=== PATIENT | male | born 1985 | race Caucasian/White ===

== ENCOUNTER 2016-09-04 13:45 | Emergency (ER) | payer OTHER ==
[~2016-09-04] VITALS: Ht 172.7 cm; Wt 109.5 kg
[2016-09-04 13:53] VITALS: Ht 172.7 cm; Wt 109.5 kg
[2016-09-04 14:53] LABS: ADD SCAN DIFF NO
[2016-09-04 14:57] LABS: ADD UMIC YES; BASOPHIL # 0.1 10^3/ul (0.0-0.1); BASOPHILS % 0.7 % (0.0-2.0); EOSINOPHILS # 0.1 10^3/ul (0.0-0.5); EOSINOPHILS % 1.6 % (0.0-7.0); HEMATOCRIT 43.4 % (42.0-52.0); HEMOGLOBIN 14.4 g/dl (14.0-18.0); LYMPHOCYTES # 1.5 10^3/ul (0.8-2.9); LYMPHOCYTES % 19.1 % (15.0-51.0); MEAN CORPUSCULAR HEMOGLOBIN 29.3 pg (29.0-33.0); MEAN CORPUSCULAR HGB CONC 33.2 g/dl (32.0-37.0); MEAN CORPUSCULAR VOLUME 88.4 fl (82.0-101.0); MEAN PLATELET VOLUME 9.3 fl (7.4-10.4); MONOCYTE # 0.6 10^3/ul (0.3-0.9); MONOCYTES % 7.9 % (0.0-11.0); NEUTROPHIL # 5.4 10^3/ul (1.6-7.5); NEUTROPHILS % 70.6 % (39.0-77.0); PLATELET COUNT 257 10^3/UL (140-415); RED BLOOD COUNT 4.91 10^6/ul (4.70-6.10); RED CELL DISTRIBUTION WIDTH 12.9 % (11.5-14.5); URINE BILIRUBIN (Dip) NEGATIVE (NEGATIVE); URINE BLOOD (Dip) TRACE (NEGATIVE); URINE COLOR LT. YELLOW (YELLOW); URINE GLUCOSE (Dip) >=1000 % (NEGATIVE); URINE KETONES (Dip) 15 (NEGATIVE); URINE LEUKOCYTE ESTERASE (Dip) NEGATIVE (NEGATIVE); URINE NITRITE (Dip) NEGATIVE (NEGATIVE); URINE TOTAL PROTEIN (Dip) NEGATIVE (NEGATIVE); URINE UROBILINOGEN (Dip) 0.2 E.U./dL (0.1-1.0); WHITE BLOOD COUNT 7.6 10^3/ul (4.8-10.8)
[2016-09-04] MEDS ORDERED: SOD CHLORIDE 0.9% 1,000 ML IV ONE (15:00)
--- NOTE | 2016-09-04 15:01 | RADRPT ---
PROCEDURE: XR Chest. CLINICAL INDICATION: chest pain, abdominal pain TECHNIQUE: Single frontal view of the chest was obtained COMPARISON: None FINDINGS: The heart and mediastinum are within normal limits. The lungs are clear. There is no pleural effusion or pneumothorax. RPTAT: AA IMPRESSION: No acute disease. .Arnold Cerrato MD, MD Date Time Electronically viewed and signed by .Arnold Cerrato MD, on 09/04/2016 15:01 .S/
[2016-09-04 15:08] LABS: URINE RBCS 0-2 /HPF (0)
[2016-09-04 15:20] LABS: ALBUMIN 4.9 g/dl (3.3-4.9); ALBUMIN/GLOBULIN RATIO 1.81; BILIRUBIN,INDIRECT 0.7 mg/dl (0-1.1); BILIRUBIN,TOTAL 0.7 mg/dl (0.2-1.3); CREATININE 0.65 mg/dl (0.61-1.24); POTASSIUM 4.5 mmol/L (3.5-5.1); TOTAL PROTEIN 7.6 g/dl (6.1-8.1)
[2016-09-04] MEDS ORDERED: SODI126M NASAL (15:43)
[2016-09-04] MEDS ORDERED: IBUP-1542 PO (15:43)
[2016-09-04] MEDS ORDERED: INSULIN ASPART [NOVOLOG] 3 ML PEN SC ONE ×2 (16:00→16:30)
--- NOTE | 2016-09-04 17:25 | ERD ---
ER Documentation Chief Complaint Date/Time DATE: 09/04/16 TIME: 17:18 Chief Complaint Complains of Sorethroat with cold and flu symptoms HPI 30-year-old male with history of type 1 diabetes presents to the ED complaining of sore throat and cough 1 week. Patient reports headache at times. He has chills, but denies fever. Denies shortness of breath. Patient reports slight epigastric abdominal pain with nausea, but no vomiting or diarrhea. He takes insulin for his diabetes, last blood sugar checked today was in the 300s. ROS All systems reviewed and are negative except as per history of present illness. Medications Home Meds Active Scripts Sodium Chloride (Saline Nasal Mist) 126 Ml Mist, 2 SPRAY NASAL Q2H Y for NASAL CONGESTION, #1 BOTTLE Prov:ALLISON MARTEL. CATERING ATTENDANT 09/04/16 Ibuprofen* (Motrin*) 600 Mg Tab, 600 MG PO Q6H Y for PAIN AND OR ELEVATED TEMP, #30 TAB Prov:ALLISON MARTEL. CATERING ATTENDANT 09/04/16 Allergies Allergies: Coded Allergies: ciprofloxacin (Verified Allergy, Intermediate, SOB, 09/04/16) PMhx/Soc History of Surgery: Yes (appendex) Anesthesia Reaction: No Hx Neurological Disorder: No Hx Respiratory Disorders: No Hx Cardiac Disorders: No Hx Psychiatric Problems: No Hx Miscellaneous Medical Probl: Yes (type 1 diabetes) Hx Alcohol Use: No Hx Substance Use: No Hx Tobacco Use: No Smoking Status: Unknown if ever smoked Physical Exam Vitals Vital Signs Date Time Temp Pulse Resp B/P Pulse Ox O2 Delivery O2 Flow Rate FiO2 09/04/16 13:53 98.3 87 20 127/73 95 Physical Exam General: Well-developed, well-nourished, conscious and coherent, in no distress Skin: Warm, diaphoretic, without rash, good texture and turgor Head: Normocephalic without evidence of trauma Eyes: Sclera and conjunctivae normal; pupils equal, round, and reactive to light; extraocular movements are intact Ears: Canals are patent. Tympanic membranes are clear Nose/Face: Erythematous swollen with clear nasal discharge. Mouth/throat: Mucous membranes are moist. Posterior pharynx clear without erythema or exudates Neck: Supple without meningismus or adenopathy. Carotids are equal. Trachea midline. No bruits or JVD Chest: Normal AP diameter. Good expansion without retractions. Nontender. Lungs are clear to auscultate bilaterally with good tidal volume Heart: Regular rate and rhythm. No murmur, rub, or gallops heard Abdomen: Soft, epigastric tenderness without masses, guarding, or rebound. Bowel sounds are active. No hepatosplenomegaly Back: Without spinal or CVA tenderness Extremities: Full range of motion. Good strength bilaterally. No clubbing, cyanosis, or edema. Peripheral pulses are intact. Sensation intact Neuro: Alert and oriented 4, GCS 15. Cranial nerves grossly intact. Motor and sensory exams nonfocal. Moves all extremities. Speech clear. Gait normal Result Diagram: 09/04/16 1444 09/04/16 1444 Results 24 hrs Laboratory Tests Test 09/04/16 14:44 09/04/16 14:55 09/04/16 16:15 09/04/16 17:03 White Blood Count 7.610^3/ul Red Blood Count 4.9110^6/ul Hemoglobin 14.4g/dl Hematocrit 43.4% Mean Corpuscular Volume 88.4fl Mean Corpuscular Hemoglobin 29.3pg Mean Corpuscular Hemoglobin Concent 33.2g/dl Red Cell Distribution Width 12.9% Platelet Count 77921^3/UL Mean Platelet Volume 9.3fl Neutrophils % 70.6% Lymphocytes % 19.1% Monocytes % 7.9% Eosinophils % 1.6% Basophils % 0.7% Nucleated Red Blood Cells % 0.0/100WBC Neutrophils # 5.410^3/ul Lymphocytes # 1.510^3/ul Monocytes # 0.610^3/ul Eosinophils # 0.110^3/ul Basophils # 0.110^3/ul Nucleated Red Blood Cells # 0.010^3/ul Urine Color LT. YELLOW Urine Clarity CLEAR Urine pH 5.0 Urine Specific [place] 1.010 Urine Ketones 15 Urine Nitrite NEGATIVE Urine Bilirubin NEGATIVE Urine Urobilinogen 0.2 E.U./dL Urine Leukocyte Esterase NEGATIVE Urine Microscopic RBC 0-2/HPF Urine Microscopic WBC NONE SEEN/HPF Urine Epithelial Cells OCCASIONAL Urine Hemoglobin TRACE Urine Glucose >=1000% Urine Total Protein NEGATIVE Sodium Level 135mmol/L Potassium Level 4.5mmol/L Chloride Level 100mmol/L Carbon Dioxide Level 26mmol/L Anion Gap 14 Blood Urea Nitrogen 19mg/dl Creatinine 0.65mg/dl Glucose Level 404mg/dl Calcium Level 10.0mg/dl Total Bilirubin 0.7mg/dl Direct Bilirubin 0.00mg/dl Indirect Bilirubin 0.7mg/dl Aspartate Amino Transf (AST/SGOT) 20IU/L Alanine Aminotransferase (ALT/SGPT) 22IU/L Alkaline Phosphatase 111IU/L Total Protein 7.6g/dl Albumin 4.9g/dl Globulin 2.70g/dl Albumin/Globulin Ratio 1.81 Lipase 28U/L Bedside Glucose 318mg/dL 296mg/dL 298mg/dL Current Medications Medications (Trade) Dose Ordered Sig/Madai Route PRN Reason Start Time Stop Time Status Last Admin Dose Admin Sodium Chloride (NS) 1,000 ml @ 1,000 mls/hr Q1H ONCE IV 09/04/16 15:00 09/04/16 15:59 DC 09/04/16 14:49 Insulin Aspart (Novolog Insulin Pen) 10 unit ONCE ONCE SC 09/04/16 16:00 09/04/16 16:22 DC Insulin Aspart (Novolog Insulin Pen) 5 unit ONCE ONCE SC 09/04/16 16:30 09/04/16 16:31 DC 09/04/16 16:32 Procedures/MDM 30-year-old male presented to ED with sore throat and cough 1 week. Patient is afebrile, in no respiratory distress. Lungs are clear to auscultate. I doubt that patient has pneumonia or bronchitis. Likely patient's symptoms are result of viral upper respiratory infection. Patient has type 1 diabetes, with blood sugar in the 300s. Patient also reports epigastric abdominal pain and nausea, concerning for DKA. CBC, CMP, lipase, and UA are all negative except for glucose of 404. He does not have any anion gap. I doubt that he has DKA. Chest x-ray is negative for acute cardiopulmonary processes. Patient's blood sugar has lowered to 296 after 1 liter of normal saline. NovoLog 5 units subcu given to the patient. Patient is advised to follow-up with his PCP for his diabetes management. Patient appears well, stable for discharge and outpatient management. Medical decision making shared with patient and family. Education provided to patient and family. Patient and family expressed understanding of the plan. Medications on discharge: Ibuprofen, saline nasal spray. Follow-up: Primary care provider in 2-3 days or return to ED if worse. The case was reviewed and discussed with Dr. Berkowitz, who agrees with the plan of care including labs, treatment, and advanced imaging as appropriate. Departure Diagnosis: Primary Impression: Viral syndrome Additional Impression: Hyperglycemia due to type 1 diabetes mellitus Condition: Good Patient Instructions: Your Diabetes Toolkit, Viral Syndrome (Adult) [facility] Usted se amezcua hecho un examen mdico de control que le indica que no est en kelsey condicin que requiera tratamiento urgente en el Departamento de Emergencia. Un estudio ms profundo y el tratamiento de mariscal condicin pueden esperar sin ningn riesgo hasta que usted sea atendida/o en el consultorio de mariscal mdico o kelsey cl ashly. Es responsabilidad suya arreglar kelsey brian para el seguimiento del margot. MANEJO DE CONDICIONES NO URGENTES EN EL FUTURO 1) Si usted tiene un mdico de atencin primaria: Usted debera llamar a mariscal mdico de atencin primaria antes de venir al departamento de emergencia. Despus de las horas de consultorio, mariscal doctor o mariscal asociado/a est disponible por telfono. El mdico o enfermero de farzad en el servicio telefnico puede asesorarle por jake medio para atender el problema, o margot contrario se puede programar kelsey brian. 2) Si usted no tiene un mdico de atencin primaria: Llame al mdico o clnica de referencia que aparece abajo rosa las horas de consultorio para hacer kelsey brian para que le vean. CLINICAS: [facility] [phone] [facility] [phone] [facility] [phone] [facility] [phone] [facility] [phone] [facility] [phone] [address] Additional Instructions: Llame al doctor MAANA y arlin kelsey BRIAN PARA DENTRO DE 2-3 VILLATORO.Dgale a la secretaria que nosotros le instruimos hacer esta brian.Avise o llame si mariscal condicin se empeora antes de la brian. Regresa aqui si peor o no mejor. ALLISON MARTEL. TOREY Sep 04, 2016 17:25
== END 2016-09-04 17:32 | disposition home or self-care (01) ==
LOC: FTE 13:45
DX: B34.9 Viral infection, unspecified (principal); E10.65 Type 1 diabetes mellitus with hyperglycemia; R07.9 Chest pain, unspecified
CPT/HCPCS: 36415; 71010; 80053; 81001; 82962; 83690; 85025; 93005; 96372; J1815; Z7502

== ENCOUNTER 2016-09-06 06:50 | Inpatient (IN) | payer OTHER ==
[~2016-09-06] VITALS: Ht 180.3 cm; Wt 106.5 kg
[~2016-09-06 06:50] MED LIST: IBUP-1542 PO; SODI126M NASAL
[2016-09-06] MEDS ORDERED: ONDANSETRON 4 MG INJ IV STA (07:00)
[2016-09-06] MEDS ORDERED: LACTATED RINGER'S 1,000 ML IV STA (07:00)
[2016-09-06] MEDS ORDERED: FAMOTIDINE 20 MG INJ IV ONE (07:00)
--- NOTE | 2016-09-06 07:05 | ERA ---
ER Documentation Chief Complaint Date/Time DATE: 09/06/16 TIME: 07:03 Chief Complaint HPI 30-year-old male type I diabetic who presents the emergency room with chest pain , nausea and vomiting. The patient describes multiple symptoms. He was seen here 2 days ago for flulike symptoms with hyperglycemia. The patient still has persistent hyperglycemia despite reported compliance with medication regimen. The patient describes substernal chest discomfort that is dull and constant that started yesterday evening is not associated with mild diaphoresis and nausea. He describes mild epigastric abdominal discomfort, no mid back pain, no sudden onset of symptoms. He describes generalized malaise and body aches over this timeframe. No diarrhea or constipation. ROS All systems reviewed and are negative except as per history of present illness. Medications Home Meds Active Scripts Sodium Chloride (Saline Nasal Mist) 126 Ml Mist, 2 SPRAY NASAL Q2H Y for NASAL CONGESTION, #1 BOTTLE Prov:ALLISON MARTEL. EXPLOSIVE ORDNANCE DISPOSAL SPECIALIST 09/04/16 Ibuprofen* (Motrin*) 600 Mg Tab, 600 MG PO Q6H Y for PAIN AND OR ELEVATED TEMP, #30 TAB Prov:ALLISON MARTEL. EXPLOSIVE ORDNANCE DISPOSAL SPECIALIST 09/04/16 Allergies Allergies: Coded Allergies: ciprofloxacin (Verified Allergy, Intermediate, SOB, 09/04/16) PMhx/Soc History of Surgery: Yes (appendex) Anesthesia Reaction: No Hx Neurological Disorder: No Hx Respiratory Disorders: No Hx Cardiac Disorders: No Hx Psychiatric Problems: No Hx Miscellaneous Medical Probl: Yes (type 1 diabetes) Hx Alcohol Use: No Hx Substance Use: No Hx Tobacco Use: No FmHx Family History: diabetes Physical Exam Vitals Vital Signs Date Time Temp Pulse Resp B/P Pulse Ox O2 Delivery O2 Flow Rate FiO2 09/06/16 08:21 104 18 143/78 96 09/06/16 07:00 98.2 110 18 109/83 96 Physical Exam General: Slightly diaphoretic and spitting into a bag Head: Normocephalic, atraumatic. Eyes: Pupils equally reactive, EOM intact ENT: Dry mucous membranes Neck: Supple, no lymphadenopathy Respiratory: Lungs clear bilaterally, no distress Cardiovascular: RRR, no murmurs, rubs, or gallops Abdominal: Soft, non-tender, non-distended, no peritoneal signs : Deferred MSK: No edema, no unilateral swelling, 5/5 strength, no pulse deficits Neurologic: Alert and oriented, moving all extremities, normal speech, no focal weakness, no cerebellar signs Skin: No rash Psych: Normal mood Result Diagram: 09/06/16 0730 09/06/16 0730 Results 24 hrs Laboratory Tests Test 09/06/16 07:00 09/06/16 07:30 Blood Gas Specimen Source Blood venous Arterial Blood Date Drawn 09/06/2016 7:30:03 AM Arterial Blood Gas Puncture Site VENOUS LINE Jhon Test N/A Venous Blood pH 7.236 Venous Blood pCO2 (Temp Corrected) 31.9mmHG Venous Blood pO2 (Temp Corrected) 68.7mmHG Venous Blood HCO3 13.2mmol/L Venous Blood Oxygen Saturation 91.9mmHG Venous Blood Base Excess -12.9mmol/L Venous Blood Total Hemoglobin 15.7g/dl Venous Blood Oxyhemoglobin 90.9% Venous Blood Methemoglobin 0.3% Carboxyhemoglobin 0.8% Blood Gas Temperature 37.0C Blood Gas Modality ROOM AIR FiO2 21.0% Blood Gas Critical Value Read Back PARVEEN PIEDRA Blood Gas Notified Whom Blood Gas Notified Time 09/06/2016 7:46:21 AM White Blood Count 9.210^3/ul Red Blood Count 4.9310^6/ul Hemoglobin 14.9g/dl Hematocrit 43.5% Mean Corpuscular Volume 88.2fl Mean Corpuscular Hemoglobin 30.2pg Mean Corpuscular Hemoglobin Concent 34.3g/dl Red Cell Distribution Width 12.4% Platelet Count 01590^3/UL Mean Platelet Volume 10.1fl Neutrophils % 73.8% Lymphocytes % 17.4% Monocytes % 6.5% Eosinophils % 0.8% Basophils % 1.1% Nucleated Red Blood Cells % 0.0/100WBC Neutrophils # 6.810^3/ul Lymphocytes # 1.610^3/ul Monocytes # 0.610^3/ul Eosinophils # 0.110^3/ul Basophils # 0.110^3/ul Nucleated Red Blood Cells # 0.010^3/ul Sodium Level 136mmol/L Potassium Level 5.3mmol/L Chloride Level 101mmol/L Carbon Dioxide Level 12mmol/L Anion Gap 28 Blood Urea Nitrogen 23mg/dl Creatinine 0.81mg/dl Glucose Level 357mg/dl Lactic Acid Level 1.6mmol/L Calcium Level 10.6mg/dl Phosphorus Level 4.8mg/dl Magnesium Level 2.0mg/dl Troponin I < 0.012ng/ml Current Medications Medications (Trade) Dose Ordered Sig/Madai Route PRN Reason Start Time Stop Time Status Last Admin Dose Admin Lactated Ringer's (Lr) 1,000 ml @ 1,000 mls/hr Q1H STAT IV 09/06/16 07:00 09/06/16 07:59 DC 09/06/16 07:46 Ondansetron HCl (Zofran Inj) 4 mg ONCE STAT IV 09/06/16 07:00 09/06/16 07:03 DC 09/06/16 07:46 Famotidine 20 mg 20 mg ONCE ONCE IV 09/06/16 07:00 09/06/16 07:03 DC 09/06/16 07:47 Sodium Chloride 2,000 ml @ 1,000 mls/hr Q2H STAT IV 09/06/16 08:57 09/06/16 10:56 09/06/16 09:03 Insulin Human Regular/Sodium Chloride (Novolin-R/NS) 100 ml @ 0 mls/hr TITRATE STAT IV 09/06/16 08:57 09/06/16 09:00 DC Procedures/MDM EKG, MONITORS, & DIAGNOSTIC IMAGING: EKG: I reviewed and interpreted a 12-lead EKG. Rhythm: Normal sinus rhythm Ectopy: None Intervals: No abnormalities ST segments: No elevations or depressions T waves: No contiguous inversions Chest x-ray: I reviewed and interpreted a 1 view of the chest Mediastinum: No enlargement Cardiac silhouette: No cardiomegaly Airspace: Clear lung gibbs bilaterally without evidence of pneumothorax Bones: No evidence of fracture EMS rhythm strip: Rhythm strip: Rate/Rhythm: Normal Sinus Rhythm Impression: No evidence of ischemia or arrhythmia LAB INTERPRETATION: Negative troponin, hyperglycemia with evidence of acidosis on venous blood gas as well as anion gap on metabolic profile MEDICAL DECISION MAKING: The patient presents with nonspecific symptoms that include nausea vomiting diaphoresis myalgias and chest discomfort. I do not believe the patient's chest pain is consistent with acute coronary syndrome given his age and limited risk profile. The patient has no signs or symptoms that are pleuritic and no evidence that this is consistent with pulmonary embolism. Low concern for dissection. The patient's symptoms are likely more consistent with viral syndrome with concomitant diabetic ketoacidosis. Fluid resuscitation, venous blood gas are initiated. Consider possible GI process such as gastritis. IV fluids and Pepcid provided. ER COURSE: Laboratory testing confirms suspicion of diabetic ketoacidosis. The patient was initiated with lactated Ringer's, 2 L of saline. Initial insulin drip was ordered. The patient will likely require insulin protocol with maintenance fluids after boluses. The patient will require intensive care unit level of care. Unclear trigger at this point, likely viral process. Potassium slightly high but no lowering agents given given likelihood of global hypokalemia. Magnesium and phosphorus appear to be within normal limits. Continue to monitor electrolytes. I kept the patient and/or family informed of laboratory and diagnostic imaging results throughout the emergency room course. DISPOSITION PLAN: Intensive care unit for management of diabetic ketoacidosis CONSULTATION: Accepting care team and consultations: I discussed the current laboratory data, diagnostic imaging and emergency care provided. Admitting team: Dr. Etienne Admitting team indication: Insurance directed Critical Care Note: Total time: 35 minutes Indication/Organ System Threat: Diabetic ketoacidosis I spent the above amount of critical care time with the patient, not including billable procedures. This included chart review, consultations, repeat bedside evaluations, and titration of appropriate medications to prevent cardiopulmonary or respiratory collapse. Departure Diagnosis: Primary Impression: Atypical chest pain Additional Impressions: Diabetic ketoacidosis Qualified Code: E10.10 - Diabetic ketoacidosis without coma associated with type 1 diabetes mellitus Viral syndrome Condition: SANDEEP Buchanan MD Sep 06, 2016 07:05
[2016-09-06 07:49] LABS: MODE ROOM AIR; MetHgb Venous 0.3 %; Sample Type Blood venous; Venous COHb 0.8 %; Venous Fraction OxyHgb 90.9 %; Venous Total Hemglobin 15.7 g/dl
[2016-09-06 07:56] LABS: ADD SCAN DIFF NO
[2016-09-06 08:11] LABS: BASOPHIL # 0.1 10^3/ul (0.0-0.1); BASOPHILS % 1.1 % (0.0-2.0); EOSINOPHILS # 0.1 10^3/ul (0.0-0.5); EOSINOPHILS % 0.8 % (0.0-7.0); HEMATOCRIT 43.5 % (42.0-52.0); HEMOGLOBIN 14.9 g/dl (14.0-18.0); LYMPHOCYTES # 1.6 10^3/ul (0.8-2.9); LYMPHOCYTES % 17.4 % (15.0-51.0); MEAN CORPUSCULAR HEMOGLOBIN 30.2 pg (29.0-33.0); MEAN CORPUSCULAR HGB CONC 34.3 g/dl (32.0-37.0); MEAN CORPUSCULAR VOLUME 88.2 fl (82.0-101.0); MEAN PLATELET VOLUME 10.1 fl (7.4-10.4); MONOCYTE # 0.6 10^3/ul (0.3-0.9); MONOCYTES % 6.5 % (0.0-11.0); NEUTROPHIL # 6.8 10^3/ul (1.6-7.5); NEUTROPHILS % 73.8 % (39.0-77.0); PLATELET COUNT 303 10^3/UL (140-415); RED BLOOD COUNT 4.93 10^6/ul (4.70-6.10); RED CELL DISTRIBUTION WIDTH 12.4 % (11.5-14.5); WHITE BLOOD COUNT 9.2 10^3/ul (4.8-10.8)
--- NOTE | 2016-09-06 08:12 | RADRPT ---
PROCEDURE: Chest Radiograph. CLINICAL INDICATION: Chest pain TECHNIQUE: Single frontal chest radiograph. COMPARISON: Chest radiograph 09/04/2016 FINDINGS: The cardiomediastinal silhouette is within normal limits. No infiltrate or effusion is seen. Th e bones are intact. IMPRESSION: 1. Unremarkable chest radiograph. RPTAT: KK .Gilmer Lai MD, MD Date Time Electronically viewed and signed by .Gilmer Lai MD, on 09/06/2016 08:12 .B/
[2016-09-06 08:33] LABS: ANION GAP 28 (8-16); BLOOD UREA NITROGEN 23 mg/dl (7-20); CALCIUM 10.6 mg/dl (8.4-10.2); CARBON DIOXIDE 12 mmol/L (21-31); CHLORIDE 101 mmol/L (97-110); CREATININE 0.81 mg/dl (0.61-1.24); GLUCOSE 357 mg/dl (70-220); PHOSPHORUS 4.8 mg/dl (2.5-4.9); SODIUM 136 mmol/L (135-144)
[2016-09-06 08:46] LABS: TROPONIN-I < 0.012 ng/ml (0.00-0.12)
[2016-09-06 08:49] LABS: POTASSIUM 5.3 mmol/L (3.5-5.1)
[2016-09-06] MEDS ORDERED: SOD CHLORIDE 0.9% 2,000 ML IV STA (08:57)
[2016-09-06] MEDS ORDERED: INSULIN HUMAN REGULAR 100 UNIT in SOD CHLORIDE 0.9% 99 ML IV STA ×2 (08:57→23:21)
[2016-09-06] MEDS ORDERED: SOD CHLORIDE 0.9% 1,000 ML IV SCH (10:15)
[2016-09-06] MEDS ORDERED: DEXTROSE 50% 50 ML SYRINGE IV PRN ×2 (10:30)
[2016-09-06] MEDS ORDERED: HYPOGLYCEMIA TREATMENT XX PRN (10:30)
[2016-09-06] MEDS: ACCU-CHEK XX SCH ×13 (11:11→22:33)
[2016-09-06] MEDS: POTASSIUM CHLORIDE 40 MEQ in SOD CHLORIDE 0.45% 1,000 ML IV SCH ×4 (12:12→23:15)
[2016-09-06] MEDS ORDERED: morphine 2 MG INJ IV PRN (12:30)
[2016-09-06] MEDS ORDERED: hydrALAzine 20 MG INJ IV PRN (12:30)
[2016-09-06] MEDS ORDERED: ONDANSETRON 4 MG INJ IV PRN (12:30)
[2016-09-06] MEDS ORDERED: NACL 0.9% 3 ML SYG IV SCH (12:30)
[2016-09-06 12:36] LABS: CALCIUM 9.5 mg/dl (8.4-10.2); CREATININE 0.85 mg/dl (0.61-1.24); POTASSIUM 5.2 mmol/L (3.5-5.1)
[2016-09-06 12:37] LABS: ADD UMIC NO; UR BILIRUBIN (Dip) NEGATIVE (NEGATIVE); UR BLOOD (Dip) NEGATIVE (NEGATIVE); UR CLARITY CLEAR (CLEAR); UR COLOR LT. YELLOW (YELLOW); UR KETONES (Dip) 3+ (NEGATIVE); UR LEUKOCYTE ESTERASE (Dip) NEGATIVE (NEGATIVE); UR NITRITE (Dip) NEGATIVE (NEGATIVE); UR TOTAL PROTEIN (Dip) NEGATIVE (NEGATIVE); UR UROBILINOGEN (Dip) 0.2 E.U./dL (0.1-1.0)
[2016-09-06 13:06] LABS: BARBITURATES NEGATIVE (NEGATIVE); BENZODIAZEPINES NEGATIVE (NEGATIVE); CANNABINOIDS NEGATIVE (NEGATIVE); COCAINE NEGATIVE (NEGATIVE); OPIATES NEGATIVE (NEGATIVE)
[2016-09-06] MEDS: FAMOTIDINE 20 MG INJ IV SCH ×2 (13:11→20:51)
[2016-09-06] MEDS: D5W-0.45 NACL + KCL 40 MEQ 1,000 ML IV SCH ×3 (13:17→22:04)
[2016-09-06 13:57] LABS: CHOL/HDL RATIO 5.5 RATIO
--- NOTE | 2016-09-06 15:37 | HP ---
DATE OF ADMISSION: 09/06/2016 REASON FOR ADMISSION: Epigastric abdominal pain with nausea and vomiting. Hyperglycemia. HISTORY OF PRESENT ILLNESS: This is a 30-year-old male with past medical history of type 1 diabetes mellitus on insulin, who came to the emergency room with chief complaint of epigastric abdominal pain with multiple episodes of nonbilious, nonbloody vomiting as well as associated nausea. The patient was also complaining of generalized shakiness. The patient denied any fevers. The patient was seen in the emergency room on 09/05/2016 with similar complaints and the patient was discharged home with a diagnosis of viral syndrome. Nevertheless, the patient came back to the emergency room on 2016. The patient was also complaining of some dyspnea early in the morning. The patient denied any diarrhea, dysuria, or hematuria. In the emergency room, the patient was noticed to have a random blood glucose of 357. The patient was also noticed to have anion gap acidosis. The patient was also noticed to hyperkalemia. The patient's chest x-ray was negative for any acute intrathoracic findings. The patient's 12-lead EKG showed sinus rhythm. The patient had a venous blood gas then that showed a pH of 7.236 with bicarbonate of 13.2, and base excess of -0.9. The patient was started on an insulin drip for underlying diabetic ketoacidosis. PAST MEDICAL HISTORY: Type 1 diabetes mellitus. PAST SURGICAL HISTORY: Appendectomy. HOME MEDICATIONS: Insulin. ALLERGIES: CIPRO. SOCIAL HISTORY: The patient lives at home. Denies any use of tobacco, alcohol or illicit drugs. Currently on disability. REVIEW OF SYSTEMS: A 12-point review of systems was made and review of systems are negative other than what is mentioned in the history of present illness. PHYSICAL EXAMINATION: VITAL SIGNS: Temperature 98.2, pulse of 100, respiratory rate 18, blood pressure 141/86, oxygen saturation 96% on room air. GENERAL: This is an obese male lying in bed in no apparent distress. HEENT: Head: Normocephalic and atraumatic. Eyes: Anicteric sclerae. Conjunctivae clear. ENT: Nasal septum is midline. Oral mucosa is dry. NECK: Supple. JVD noticed. RESPIRATORY: Bilaterally clear to auscultation. No adventitious breath sounds. No use of accessory muscles of respiration. CARDIAC: Regular rate and rhythm. S1, S2 heard. ABDOMEN: Soft, nontender and nondistended. Bowel sounds are positive in all 4 quadrants. GENITOURINARY: Deferred. EXTREMITIES: No cyanosis, no clubbing, no edema. Peripheral pulses are palpable. NEUROLOGIC: The patient is awake, alert and oriented. Cranial nerves are grossly intact. LABORATORY AND DIAGNOSTIC DATA: WBC 9.2, hemoglobin 14.9, hematocrit 43.5, platelet count 303. Sodium 136, potassium 5.3, chloride 101, carbon dioxide 12 , anion gap 28, BUN 10, creatinine 0.82, glucose 357, calcium 10.6. Phosphorus 4.8, magnesium 2.0. Troponin less than 0.012. Venous blood gas that was done on room air pH of 7.236, pCO2 of 31.9, pO2 of 68.7, bicarbonate 13.2, base excess was -0.9. Chest x-ray: No acute cardiopulmonary findings. 12-lead EKG: Normal sinus rhythm. IMPRESSION: This is a 30-year-old male with past medical history of type 1 diabetes mellitus, who came to the emergency room with multiple complaints and was found to have evidence of diabetic ketoacidosis, who will be admitted here for further treatment and evaluation. ASSESSMENT AND PLAN: 1. Diabetic ketoacidosis. The patient will be continued on IV regular insulin. Serial basic metabolic panels will be ordered to evaluate improving anion gap. The patient will be kept n.p.o. The patient will be adequately hydrated using IV fluids. 2. Anion gap acidosis. Secondary to #1. Continue management as per #1. 3. Hyperkalemia. The patient will be monitored on telemetry. Hyperkalemia could be most probably secondary to electrolyte imbalances from underlying hyperglycemia. 4. Obesity. BMI of 35.4 kg/meter squared. A fasting lipid panel will be obtained on this patient. A low cholesterol diet will be advised. Plan. The patient will be admitted to inpatient intensive care unit. The patient will be started on deep venous thrombosis prophylaxis and gastrointestinal prophylaxis. The patient will remain a FULL CODE. Activities will be bed rest. The rest of the patient's management will be based on the clinical course and the results of diagnostic studies. Based on the patient's clinical presentation, he most probably requires at least 1 midnight's stay for further management and evaluation of his clinical presentation. The case and management of this patient was fully discussed with Dr. Ramesh. VICENTE RAMESH MD, AM/ELSY Conf#: [id number] DID#: [id number]
[2016-09-06] MEDS: INSULIN HUMAN REGULAR 100 UNIT in SOD CHLORIDE 0.9% 99 ML IV SCH ×4 (19:45→23:56)
[2016-09-06 21:54] LABS: ADD UMIC NO; UR BILIRUBIN (Dip) NEGATIVE (NEGATIVE); UR BLOOD (Dip) NEGATIVE (NEGATIVE); UR CLARITY CLEAR (CLEAR); UR COLOR LT. YELLOW (YELLOW); UR KETONES (Dip) 3+ (NEGATIVE); UR LEUKOCYTE ESTERASE (Dip) NEGATIVE (NEGATIVE); UR NITRITE (Dip) NEGATIVE (NEGATIVE); UR TOTAL PROTEIN (Dip) NEGATIVE (NEGATIVE); UR UROBILINOGEN (Dip) 0.2 E.U./dL (0.1-1.0)
[2016-09-06 22:40] LABS: CALCIUM 9.4 mg/dl (8.4-10.2); CREATININE 0.71 mg/dl (0.61-1.24); POTASSIUM 3.9 mmol/L (3.5-5.1)
[2016-09-06 23:13] VITALS: TEMP 98.3
[2016-09-07] VITALS (18 sets, daily range): BP systolic 101–133; BP diastolic 60–91; PULSE 76–92; RESP 10–26; Ht 180.3 cm; Wt 106.5 kg
[2016-09-07] MEDS: INSULIN HUMAN REGULAR 100 UNIT in SOD CHLORIDE 0.9% 99 ML IV SCH (00:43)
[2016-09-07] MEDS: ACCU-CHEK XX SCH ×16 (01:30→14:30)
[2016-09-07] MEDS: D5W-0.45 NACL + KCL 40 MEQ 1,000 ML IV SCH ×4 (02:45→10:39)
[2016-09-07] MEDS: POTASSIUM CHLORIDE 40 MEQ in SOD CHLORIDE 0.45% 1,000 ML IV SCH (02:45)
[2016-09-07 05:51] LABS: ADD SCAN DIFF NO
[2016-09-07 06:00] LABS: BASOPHILS % 0.5 % (0.0-2.0); EOSINOPHILS # 0.1 10^3/ul (0.0-0.5); EOSINOPHILS % 0.8 % (0.0-7.0); HEMATOCRIT 37.7 % (42.0-52.0); LYMPHOCYTES # 1.5 10^3/ul (0.8-2.9); LYMPHOCYTES % 22.8 % (15.0-51.0); MEAN CORPUSCULAR HEMOGLOBIN 29.8 pg (29.0-33.0); MEAN CORPUSCULAR HGB CONC 34.5 g/dl (32.0-37.0); MEAN CORPUSCULAR VOLUME 86.5 fl (82.0-101.0); MEAN PLATELET VOLUME 8.8 fl (7.4-10.4); MONOCYTE # 0.8 10^3/ul (0.3-0.9); MONOCYTES % 11.9 % (0.0-11.0); NEUTROPHIL # 4.2 10^3/ul (1.6-7.5); NEUTROPHILS % 63.5 % (39.0-77.0); PLATELET COUNT 298 10^3/UL (140-415); RED BLOOD COUNT 4.36 10^6/ul (4.70-6.10); RED CELL DISTRIBUTION WIDTH 12.8 % (11.5-14.5); WHITE BLOOD COUNT 6.6 10^3/ul (4.8-10.8)
[2016-09-07] MEDS ORDERED: INSULIN HUMAN REGULAR 100 UNIT in SOD CHLORIDE 0.9% 99 ML IV SCH (06:00)
[2016-09-07 06:25] LABS: ALBUMIN 4.1 g/dl (3.3-4.9); ALBUMIN/GLOBULIN RATIO 1.78; BILIRUBIN,INDIRECT 0.7 mg/dl (0-1.1); BILIRUBIN,TOTAL 0.7 mg/dl (0.2-1.3); CALCIUM 9.2 mg/dl (8.4-10.2); CREATININE 0.74 mg/dl (0.61-1.24); POTASSIUM 4.4 mmol/L (3.5-5.1); TOTAL PROTEIN 6.4 g/dl (6.1-8.1)
--- NOTE | 2016-09-07 08:19 | CONS ---
Date/Time of Note Date/Time of Note DATE: 09/07/16 TIME: 08:15 Assessment/Plan Assessment/Plan Problems: (1) Diabetes mellitus type 1 Status: Chronic Comment: His DKA has been adequately managed by the primary care team. Curiously the history of the frequent episodes of DKA requiring hospitalization is rather concerning given that there is a certain mortality rate to episodes of DKA. I have her chemical educator meet with them to make sure that his technique for administering his own insulin is appropriate. We will make sure he has adequate supplies of insulin. Therapeutically we will get him started on his basal bolus regimen directly. Please note we have no evidence that there is a chronic infection going on with this gentleman. Qualifiers: Qualified Code: E10.9 - Type 1 diabetes mellitus without complication (2) History of torn meniscus of left knee Status: Chronic Comment: This is a work comp issue and is being managed elsewhere. Course will need to get his diabetes under control for him to get this fixed (3) Diabetic ketoacidosis Status: Acute Comment: Resolved with treatment Qualifiers: Qualified Code: E10.10 - Diabetic ketoacidosis without coma associated with type 1 diabetes mellitus (4) Obesity (BMI 30.0-34.9) Status: Chronic Comment: Calorie restriction diet Consultation Date/Type/Reason Admit Date/Time Sep 06, 2016 at 10:15 Date of Consultation: Sep 07, 2016 Type of Consultation: Endocrinology Reason for Consultation Diabetes mellitus type 1 of 15 years duration and DKA with frequent episodes of DKA Referring Provider: YAQUELIN RAPP Hx of Present Illness 30-year-old gentleman on disability with diabetes mellitus type 1 since age of 15. He reports that he is admitted to the hospital at least 3 times a month with DKA. He says this is been going on for a number of years. He is unaware of any possible inciting causation for this. He states he does not miss his insulin has adequate access to it. He states that sometimes his insulin just does not work. He is come into the hospital in DKA. He denies any fevers chills or sweats he denies any known dental problems or skin abscesses. Constitutional: no complaints Eyes: no complaints ENT: no complaints Respiratory: no complaints Cardiovascular: no complaints Gastrointestinal: no complaints Genitourinary: no complaints Musculoskeletal: other (Left knee pain from prior injury that is work-related and is placed him on disability) Skin: no complaints Neurologic: no complaints Endocrine: polydypsia Past Medical History Diabetes mellitus type 1; left knee meniscal injuries on disability. Past Surgical History Past Surgical Hx: no surgical history Family History Significant Family History: no pertinent family hx Social History Alcohol Use: none Smoking Status: Never smoker Drug Use: none Other Social History He states he is on full disability. He is recently moved to near this facility. He is previously been largely managed at all of view; [facility]; [facility]; and [place] Exam/Review of Systems Vital Signs Vitals Vital Signs Date Time Temp Pulse Resp B/P Pulse Ox O2 Delivery O2 Flow Rate FiO2 09/07/16 08:00 98.8 78 19 113/70 98 Room Air Intake and Output 09/06/16 09/06/16 09/07/16 15:00 23:00 07:00 Intake Total 2000 ml 2223.7 ml Output Total 1800 ml 1100 ml 0 ml Balance -1800 ml 900 ml 2223.7 ml Exam Constitutional: alert, oriented Neck: non-tender, supple Respiratory: clear to auscultation, normal air movement Cardiovascular: nl pulses, regular rate and rhythm Gastrointestinal: nl liver, spleen, non-tender, soft Results Result Diagram: 09/07/16 0515 09/07/16 0527 Results 24 hrs Laboratory Tests Test 09/06/16 09:29 09/06/16 09:33 09/06/16 09:36 09/06/16 10:47 Lactic Acid Level 1.8 Bedside Glucose 143 341 H Hemoglobin A1c 10.5 H Test 09/06/16 10:54 09/06/16 11:30 09/06/16 12:00 09/06/16 12:14 Bedside Glucose 365 H 318 H Urine Color LT. YELLOW Urine Clarity CLEAR Urine pH 5.5 Urine Specific Levasy 1.025 Urine Ketones 3+ H Urine Nitrite NEGATIVE Urine Bilirubin NEGATIVE Urine Urobilinogen 0.2 E.U./dL Urine Leukocyte Esterase NEGATIVE Urine Hemoglobin NEGATIVE Urine Glucose 0.5% H Urine Total Protein NEGATIVE Urine Opiates Screen NEGATIVE Urine Barbiturates NEGATIVE Urine Amphetamines Screen NEGATIVE Urine Benzodiazepines Screen NEGATIVE Urine Cocaine Screen NEGATIVE Urine Cannabinoids NEGATIVE Sodium Level 139 Potassium Level 5.2 H Chloride Level 107 Carbon Dioxide Level 10 L Anion Gap 27 H Blood Urea Nitrogen 23 H Creatinine 0.85 Glucose Level 309 H Lactic Acid Level 2.0 Calcium Level 9.5 Phosphorus Level 4.5 Test 09/06/16 12:55 09/06/16 13:11 09/06/16 14:17 09/06/16 15:19 Triglycerides Level 541 H Cholesterol Level 309 H LDL Cholesterol, Calculated 145 HDL Cholesterol 56 Cholesterol/HDL Ratio 5.5 Vitamin D 1,25-Dihydroxy 28.9 L Thyroid Stimulating Hormone (TSH) 0.345 L Free Thyroxine 0.80 Bedside Glucose 211 179 177 Test 09/06/16 15:22 09/06/16 16:43 09/06/16 17:31 09/06/16 18:33 Urine Color LT. YELLOW Urine Clarity CLEAR Urine pH 5.5 Urine Specific Levasy >=1.030 H Urine Ketones 3+ H Urine Nitrite NEGATIVE Urine Bilirubin NEGATIVE Urine Urobilinogen 0.2 E.U./dL Urine Leukocyte Esterase NEGATIVE Urine Hemoglobin NEGATIVE Urine Glucose 0.5% H Urine Total Protein NEGATIVE Bedside Glucose 160 163 120 Test 09/06/16 19:34 09/06/16 20:30 09/06/16 21:30 09/06/16 21:56 Bedside Glucose 109 119 88 Sodium Level 139 Potassium Level 3.9 Chloride Level 112 H Carbon Dioxide Level 20 #L Anion Gap 11 # Blood Urea Nitrogen 18 Creatinine 0.71 Glucose Level 80 # Calcium Level 9.4 Test 09/06/16 22:34 09/06/16 23:07 09/06/16 23:17 09/07/16 00:27 Bedside Glucose 68 L 112 114 150 Test 09/07/16 01:35 09/07/16 02:10 09/07/16 02:56 09/07/16 03:54 Bedside Glucose 143 121 145 165 Test 09/07/16 04:58 09/07/16 05:15 09/07/16 05:27 09/07/16 06:05 Bedside Glucose 166 166 White Blood Count 6.6 # Red Blood Count 4.36 L Hemoglobin 13.0 L Hematocrit 37.7 L Mean Corpuscular Volume 86.5 Mean Corpuscular Hemoglobin 29.8 Mean Corpuscular Hemoglobin Concent 34.5 Red Cell Distribution Width 12.8 Platelet Count 298 Mean Platelet Volume 8.8 Neutrophils % 63.5 Lymphocytes % 22.8 Monocytes % 11.9 H Eosinophils % 0.8 Basophils % 0.5 Nucleated Red Blood Cells % 0.0 Neutrophils # 4.2 Lymphocytes # 1.5 Monocytes # 0.8 Eosinophils # 0.1 Basophils # 0.0 Nucleated Red Blood Cells # 0.0 Phosphorus Level 2.5 # Sodium Level 138 Potassium Level 4.4 Chloride Level 111 H Carbon Dioxide Level 19 L Anion Gap 12 Blood Urea Nitrogen 17 Creatinine 0.74 Glucose Level 175 Calcium Level 9.2 Total Bilirubin 0.7 Direct Bilirubin 0.00 Indirect Bilirubin 0.7 Aspartate Amino Transf (AST/SGOT) 17 Alanine Aminotransferase (ALT/SGPT) 21 Alkaline Phosphatase 96 Total Protein 6.4 Albumin 4.1 Globulin 2.30 Albumin/Globulin Ratio 1.78 Test 09/07/16 06:59 09/07/16 07:48 Bedside Glucose 164 170 Medications Medications Current Medications Dextrose (D50w Syringe) 50 ml Q15M PRN IV For BS 50 or less; Start 09/06/16 at 10:30 Dextrose (D50w Syringe) 25 ml Q15M PRN IV BS between 50-70 Last administered on 09/06/16 22:48; Admin Dose 25 ML; Start 09/06/16 at 10:30 Diagnostic Test (Pha) 1 ea 1 ea Q1H XX Last administered on 09/07/16 07:52; Admin Dose 1 EA; Start 09/06/16 at 10:30 Potassium Chloride/Dextrose/ Sod Cl (D5-1/2ns + KCl 40 Meq) 1,000 ml @ 0 mls/ hr Q0M IV Last administered on 09/07/16 02:45; Admin Dose 250 MLS/HR; Start at 11:00 Hydralazine HCl (Apresoline) 10 mg Q6H PRN IV SBP>160; Start 09/06/16 at 12:30 Ondansetron HCl (Zofran Inj) 4 mg Q6H PRN IV NAUSEA AND/OR VOMITING; Start at 12:30 Morphine Sulfate (morphine) 2 mg Q4H PRN IV PAIN LEVEL 7-10 Last administered on 09/06/16 19:11; Admin Dose 2 MG; Start 09/06/16 at 12:30 Famotidine 20 mg 20 mg Q12 IV Last administered on 09/06/16 20:51; Admin Dose 20 MG; Start 09/06/16 at 13:00 Potassium Chloride/Dextrose/ Sod Cl (D5-1/2ns + KCl 40 Meq) 1,000 ml @ 250 mls/ hr Q4H IV Last administered on 09/07/16t 06:33; Admin Dose 250 MLS/HR; Start at 03:30 EMY CASTELLANOS MD Sep 07, 2016 08:19
[2016-09-07] MEDS ORDERED: Discontinue Glyburide, Glipizide, and/or Glimepiride prior to starting Insulin XX ONE (08:30)
[2016-09-07] MEDS ORDERED: HYPOGLYCEMIA PROTOCOL when Glucose is <70 mg/dL or symptomatic <90 mg/dL. XX ONE (08:30)
[2016-09-07] MEDS: FAMOTIDINE 20 MG INJ IV SCH ×2 (08:40→21:15)
--- NOTE | 2016-09-07 10:14 | PN ---
Date/Time of Note Date/Time of Note DATE: 09/07/16 TIME: 10:14 Assessment/Plan VTE Prophylaxis VTE Prophylaxis Intervention: SCD's Lines/Catheters IV C[facility]ter Type (from [facility] Peripheral IV Assessment/Plan Chief Complaint/Hosp Course 1. Diabetic ketoacidosis. Has history of type 1 diabetes mellitus. The patient on insulin drip. The patient is out of ketoacidosis. The patient to be switched to subcutaneous insulin. Patient being followed by endocrinology. 2. Anion gap acidosis. Secondary to #1. Continue management as per #1. 3. Hyperkalemia. Resolved. 4. Dyslipidemia. High triglycerides with suboptimal LDL and total cholesterol. Start fish oil. Low-cholesterol diet. Dietary consult. 5. Fluids, electrolytes, and nutrition. n.p.o. Continue IV fluids. 6. DVT prophylaxis. Bilateral sequential compression devices. 7. Gastrointestinal prophylaxis. Histamine 2 receptor blockers. 8. Plan. Wean off insulin drip as per protocol. Transition to the patient to subcutaneous insulin. Transfer the patient to medical surgical floor once off insulin drip. Case discussed with Dr. Ramesh. Critical care time: 35 minutes. Problems: Subjective 24 Hr Interval Summary Free Text/Dictation Feeling weak. Remains on insulin drip. Exam/Review of Systems Vital Signs Vitals Vital Signs Date Time Temp Pulse Resp B/P Pulse Ox O2 Delivery O2 Flow Rate FiO2 09/07/16 08:00 86 09/07/16 08:00 98.8 19 113/70 98 Room Air Intake and Output 09/06/16 09/06/16 09/07/16 15:00 23:00 07:00 Intake Total 2000 ml 2223.7 ml Output Total 1800 ml 1100 ml 0 ml Balance -1800 ml 900 ml 2223.7 ml Exam GENERAL: This is an obese male lying in bed in no apparent distress. HEENT: Head: Normocephalic and atraumatic. Eyes: Anicteric sclerae. Conjunctivae clear. ENT: Nasal septum is midline. Oral mucosa is dry. NECK: Supple. JVD noticed. RESPIRATORY: Bilaterally clear to auscultation. No adventitious breath sounds. No use of accessory muscles of respiration. CARDIAC: Regular rate and rhythm. S1, S2 heard. ABDOMEN: Soft, nontender and nondistended. Bowel sounds are positive in all 4 quadrants. GENITOURINARY: Deferred. EXTREMITIES: No cyanosis, no clubbing, no edema. Peripheral pulses are palpable. NEUROLOGIC: The patient is awake, alert and oriented. Cranial nerves are grossly intact. Results Result Diagram: 09/07/16 0515 09/07/16 0527 Results 24 hrs Laboratory Tests Test 09/06/16 10:47 09/06/16 10:54 09/06/16 11:30 09/06/16 12:00 Hemoglobin A1c 10.5 H Bedside Glucose 365 H Urine Color LT. YELLOW Urine Clarity CLEAR Urine pH 5.5 Urine Specific [place] 1.025 Urine Ketones 3+ H Urine Nitrite NEGATIVE Urine Bilirubin NEGATIVE Urine Urobilinogen 0.2 E.U./dL Urine Leukocyte Esterase NEGATIVE Urine Hemoglobin NEGATIVE Urine Glucose 0.5% H Urine Total Protein NEGATIVE Urine Opiates Screen NEGATIVE Urine Barbiturates NEGATIVE Urine Amphetamines Screen NEGATIVE Urine Benzodiazepines Screen NEGATIVE Urine Cocaine Screen NEGATIVE Urine Cannabinoids NEGATIVE Sodium Level 139 Potassium Level 5.2 H Chloride Level 107 Carbon Dioxide Level 10 L Anion Gap 27 H Blood Urea Nitrogen 23 H Creatinine 0.85 Glucose Level 309 H Lactic Acid Level 2.0 Calcium Level 9.5 Phosphorus Level 4.5 Test 09/06/16 12:14 09/06/16 12:55 09/06/16 13:11 09/06/16 14:17 Bedside Glucose 318 H 211 179 Triglycerides Level 541 H Cholesterol Level 309 H LDL Cholesterol, Calculated 145 HDL Cholesterol 56 Cholesterol/HDL Ratio 5.5 Vitamin D 1,25-Dihydroxy 28.9 L Thyroid Stimulating Hormone (TSH) 0.345 L Free Thyroxine 0.80 Test 09/06/16 15:19 09/06/16 15:22 09/06/16 16:43 09/06/16 17:31 Bedside Glucose 177 160 163 Urine Color LT. YELLOW Urine Clarity CLEAR Urine pH 5.5 Urine Specific [place] >=1.030 H Urine Ketones 3+ H Urine Nitrite NEGATIVE Urine Bilirubin NEGATIVE Urine Urobilinogen 0.2 E.U./dL Urine Leukocyte Esterase NEGATIVE Urine Hemoglobin NEGATIVE Urine Glucose 0.5% H Urine Total Protein NEGATIVE Test 09/06/16 18:33 09/06/16 19:34 09/06/16 20:30 09/06/16 21:30 Bedside Glucose 120 109 119 88 Test 09/06/16 21:56 09/06/16 22:34 09/06/16 23:07 09/06/16 23:17 Sodium Level 139 Potassium Level 3.9 Chloride Level 112 H Carbon Dioxide Level 20 #L Anion Gap 11 # Blood Urea Nitrogen 18 Creatinine 0.71 Glucose Level 80 # Calcium Level 9.4 Bedside Glucose 68 L 112 114 Test 09/07/16 00:27 09/07/16 01:35 09/07/16 02:10 09/07/16 02:56 Bedside Glucose 150 143 121 145 Test 09/07/16 03:54 09/07/16 04:58 09/07/16 05:15 09/07/16 05:27 Bedside Glucose 165 166 White Blood Count 6.6 # Red Blood Count 4.36 L Hemoglobin 13.0 L Hematocrit 37.7 L Mean Corpuscular Volume 86.5 Mean Corpuscular Hemoglobin 29.8 Mean Corpuscular Hemoglobin Concent 34.5 Red Cell Distribution Width 12.8 Platelet Count 298 Mean Platelet Volume 8.8 Neutrophils % 63.5 Lymphocytes % 22.8 Monocytes % 11.9 H Eosinophils % 0.8 Basophils % 0.5 Nucleated Red Blood Cells % 0.0 Neutrophils # 4.2 Lymphocytes # 1.5 Monocytes # 0.8 Eosinophils # 0.1 Basophils # 0.0 Nucleated Red Blood Cells # 0.0 Phosphorus Level 2.5 # Magnesium Level 1.9 Sodium Level 138 Potassium Level 4.4 Chloride Level 111 H Carbon Dioxide Level 19 L Anion Gap 12 Blood Urea Nitrogen 17 Creatinine 0.74 Glucose Level 175 Calcium Level 9.2 Total Bilirubin 0.7 Direct Bilirubin 0.00 Indirect Bilirubin 0.7 Aspartate Amino Transf (AST/SGOT) 17 Alanine Aminotransferase (ALT/SGPT) 21 Alkaline Phosphatase 96 Total Protein 6.4 Albumin 4.1 Globulin 2.30 Albumin/Globulin Ratio 1.78 Test 09/07/16 06:05 09/07/16 06:59 09/07/16 07:48 09/07/16 08:40 Bedside Glucose 166 164 170 173 Test 09/07/16 09:46 Bedside Glucose 165 Medications Medications Current Medications Dextrose (D50w Syringe) 50 ml Q15M PRN IV For BS 50 or less; Start 09/06/16 at 10:30 Dextrose (D50w Syringe) 25 ml Q15M PRN IV BS between 50-70 Last administered on 09/06/16t 22:48; Admin Dose 25 ML; Start 09/06/16 at 10:30 Diagnostic Test (Pha) 1 ea 1 ea Q1H XX Last administered on 09/07/16 09:41; Admin Dose 1 EA; Start 09/06/16 at 10:30 Potassium Chloride/Dextrose/ Sod Cl (D5-1/2ns + KCl 40 Meq) 1,000 ml @ 0 mls/ hr Q0M IV Last administered on 09/07/16 02:45; Admin Dose 250 MLS/HR; Start at 11:00 Hydralazine HCl (Apresoline) 10 mg Q6H PRN IV SBP>160; Start 09/06/16 at 12:30 Ondansetron HCl (Zofran Inj) 4 mg Q6H PRN IV NAUSEA AND/OR VOMITING; Start at 12:30 Morphine Sulfate (morphine) 2 mg Q4H PRN IV PAIN LEVEL 7-10 Last administered on 09/06/16 19:11; Admin Dose 2 MG; Start 09/06/16 at 12:30 Famotidine 20 mg 20 mg Q12 IV Last administered on 09/07/16 08:40; Admin Dose 20 MG; Start 09/06/16 at 13:00 Potassium Chloride/Dextrose/ Sod Cl (D5-1/2ns + KCl 40 Meq) 1,000 ml @ 250 mls/ hr Q4H IV Last administered on 09/07/16 06:33; Admin Dose 250 MLS/HR; Start at 03:30 Diagnostic Test (Pha) (Accu-Chek) 1 ea 02 XX ; Start 09/08/16 at 02:00 Insulin Glargine (Lantus) 30 unit BID@08,20 SC ; Start 09/07/16 at 09:30 VICENTE MUNIZ NP Sep 07, 2016 10:14
[2016-09-07] MEDS: INSULIN GLARGINE [LANtus] 3 ML PEN SC SCH ×2 (10:38→21:15)
[2016-09-07] MEDS: INSULIN ASPART [NOVOLOG] 3 ML PEN SC SCH ×5 (10:38→21:12)
[2016-09-07] MEDS ORDERED: INSULIN ASPART [NOVOLOG] 3 ML PEN SC SCH ×2 (11:30)
[2016-09-07] MEDS: FISH OIL 1,000 MG CAP PO SCH ×2 (12:37→21:15)
[2016-09-07] MEDS ORDERED: GLUCAGON 1 MG INJ IM PRN (15:30)
[2016-09-07] MEDS ORDERED: GLUCOSE GEL 15 GRAM TUBE BUCCAL PRN (15:30)
[2016-09-07] MEDS ORDERED: DEXTROSE 50% 50 ML SYRINGE IV PRN ×2 (15:30)
[2016-09-07] MEDS ORDERED: GLUCOSE GEL 15 GRAM TUBE PO PRN ×2 (15:30)
[2016-09-07] MEDS ORDERED: DEXTROSE 5%-0.45% NACL 1,000 ML IV SCH (17:00)
[2016-09-07] MEDS ORDERED: INSULIN GLARGINE [LANtus] 3 ML PEN SC SCH (20:00)
[2016-09-08] MEDS ORDERED: ACCU-CHEK XX SCH (02:00)
[2016-09-08 07:17] LABS: ADD SCAN DIFF NO
[2016-09-08 07:20] LABS: BASOPHIL # 0.1 10^3/ul (0.0-0.1); BASOPHILS % 1.3 % (0.0-2.0); EOSINOPHILS # 0.1 10^3/ul (0.0-0.5); EOSINOPHILS % 1.1 % (0.0-7.0); HEMATOCRIT 39.6 % (42.0-52.0); HEMOGLOBIN 13.2 g/dl (14.0-18.0); LYMPHOCYTES # 1.6 10^3/ul (0.8-2.9); LYMPHOCYTES % 34.9 % (15.0-51.0); MEAN CORPUSCULAR HEMOGLOBIN 29.2 pg (29.0-33.0); MEAN CORPUSCULAR HGB CONC 33.3 g/dl (32.0-37.0); MEAN CORPUSCULAR VOLUME 87.6 fl (82.0-101.0); MEAN PLATELET VOLUME 9.1 fl (7.4-10.4); MONOCYTE # 0.6 10^3/ul (0.3-0.9); MONOCYTES % 12.1 % (0.0-11.0); NEUTROPHIL # 2.3 10^3/ul (1.6-7.5); NEUTROPHILS % 49.9 % (39.0-77.0); PLATELET COUNT 258 10^3/UL (140-415); RED BLOOD COUNT 4.52 10^6/ul (4.70-6.10); RED CELL DISTRIBUTION WIDTH 13.1 % (11.5-14.5); WHITE BLOOD COUNT 4.6 10^3/ul (4.8-10.8)
[2016-09-08 07:58] LABS: MAGNESIUM 1.7 mg/dl (1.7-2.5); PHOSPHORUS 3.1 mg/dl (2.5-4.9)
[2016-09-08 08:00] VITALS: BP 137/81; RESP 19
[2016-09-08 08:09] LABS: CALCIUM 9.5 mg/dl (8.4-10.2); CREATININE 0.59 mg/dl (0.61-1.24); POTASSIUM 3.8 mmol/L (3.5-5.1)
[2016-09-08] MEDS: INSULIN GLARGINE [LANtus] 3 ML PEN SC SCH (08:39)
[2016-09-08] MEDS: INSULIN ASPART [NOVOLOG] 3 ML PEN SC SCH ×4 (08:39→12:16)
--- NOTE | 2016-09-08 10:33 | PDOCDIS ---
Discharge Instructions DIAGNOSIS Discharge Diagnosis: Diabetic ketoacidosis. CONDITION Patient Condition: Stable HOME CARE INSTRUCTIONS: Special Diet: 1800 ada FOLLOW UP/APPOINTMENTS Appointments Ty Rico MD Specialty: Internal Medicine Office Address: [address] [place], [place] [id number] Office OTHER ORDERS: Other Orders: 1. Take medications as per prescription. 2. Follow a carbohydrate controlled, low-cholesterol diet. 3. Follow-up with your primary care physician in 1 week. If you do not have a primary care physician, please call Dr. Ty Rico's office. 4. Resume activities as tolerated. VICENTE MUNIZ NP Sep 08, 2016 10:32
[2016-09-08] MEDS ORDERED: LANT3I SC (10:34)
[2016-09-08] MEDS ORDERED: NOVO3I SC ×2 (10:34)
[2016-09-08] MEDS ORDERED: AZIT500T2 PO (10:37)
[2016-09-08] MEDS ORDERED: TRAM50TA2 PO (10:37)
[2016-09-08] MEDS ORDERED: FENO145T19 PO (10:37)
[2016-09-08] MEDS ORDERED: OMEG1CAP55 PO (10:37)
[2016-09-08] MEDS: FISH OIL 1,000 MG CAP PO SCH (10:48)
[2016-09-08] MEDS: FAMOTIDINE 20 MG INJ IV SCH (10:48)
--- NOTE | 2016-09-08 11:39 | DS ---
DATE OF ADMISSION: 09/06/2016 DATE OF DISCHARGE: 09/08/2016 FINAL DIAGNOSES: 1. Diabetic ketoacidosis. 2. Anion gap acidosis. 3. Hyperkalemia, resolved. 4. Dyslipidemia. 5. Obesity. CONSULTATIONS: Dr. Rito Schrader, Endocrinology. HOSPITAL COURSE: This is a 30-year-old male with past medical history of type 1 diabetes mellitus on insulin, who came to the emergency room with chief complaint of epigastric abdominal pain with multiple episodes of nonbilious, nonbloody vomiting as well as associated nausea. The patient was also complaining of chest pain from frequent coughing. He was also complaining of generalized shakiness. He denied any fevers. The patient was seen in the emergency room on 09/05/2016 with similar complaints and the patient was discharged home with a diagnosis of viral syndrome. Nevertheless, the patient came to the emergency room on 09/06/2016. The patient was also complaining of some dyspnea. He denied any diarrhea, dysuria, or hematuria. He was complaining of urinary frequency. In the emergency room, the patient was noticed to have a random blood glucose of 357. The patient was also noticed to have anion gap acidosis. The patient was also noticed to have hyperkalemia. The patient's venous blood gas pH was 7.236. The patient was started on insulin drip for underlying diabetic ketoacidosis. The patient was transferred to intensive care unit. The patient was maintained on an insulin drip until he was out of diabetic ketoacidosis. Once he was out of diabetic ketoacidosis, he was started on Lantus insulin and the patient's regular insulin drip was discontinued. The patient was started on a diet after the insulin drip was discontinued. The patient was noticed to have a hemoglobin A1c of 10.5. The patient was seen and evaluated by a assistant coach, and the patient was instructed on dietary restrictions as well as optimal blood sugar control. The patient was also noticed to have dyslipidemia with high triglycerides and elevated total cholesterol. Consequently, the patient was started on fish oil. The patient will also be started on fibrates because of significant hypertriglyceridemia. The patient was also complaining of chest congestion with productive cough. The patient's chest x-ray was negative for any acute infiltrates. The patient will be discharged home on Zithromax Tri-Bhavin. The patient also had some hyperkalemia upon admission and was resolved with correction of his DKA. The patient had a stable hospital course. The patient is stable to be discharged home. DISPOSITION AND PLAN: The patient will be discharged home today. He was instructed to take medications as per prescription. He was instructed to follow a carbohydrate controlled low cholesterol diet. He was instructed to follow up with his primary care physician in 1 week and if he does not have a primary care physician, to please call Dr. Ty Rico's office. He was instructed to resume activities as tolerated. The patient verbalized understanding of discharge instructions. CONDITION AT DISCHARGE: Stable. DISCHARGE MEDICATIONS: 1. Zithromax Tri-Bhavin. 2. Fenofibrate 145 mg p.o. daily. 3. Humalog insulin with meals and bedtime as per sliding scale. 4. Humalog insulin with meals at 6 units subcutaneously. 5. Lantus insulin 30 units subcutaneously b.i.d. 6. Fish oil 1000 mg p.o. b.i.d. 7. Tramadol 50 mg p.o. 8 hours p.r.n. pain pattern (10 tablets). PERTINENT LABORATORY AND DIAGNOSTIC DATA: 1. Chest x-ray upon admission: No acute cardiopulmonary findings. 2. Blood culture x2, negative. 3. Urine culture x3 negative. 4. Hemoglobin A1c 10.5. 5. Fasting lipid panel: Triglycerides 541, total cholesterol 309, LDL 145, HDL 56. 6. Latest CBC: WBC 4.6, hemoglobin 13.0, hematocrit 39.6, platelet count 258. 7. Latest BMP: Sodium 139, potassium 3.8, chloride 106, carbon dioxide 20, anion gap 12, BUN 12, creatinine 0.59, glucose 168, calcium 9.5, phosphorus 3.1 , magnesium 1.7. At this time, I would like to thank Dr. Schrader for seeing the patient and providing clinical recommendations. The case and management of this patient was fully discussed with Dr. Ramesh. Approximately 35 minutes was spent on coordinating the discharge on this patient. VICENTE RAMESH MD, AM/ELSY Conf#: [id number] DID#: [id number]
== END 2016-09-08 17:45 | disposition home or self-care (01) | DRG 639 ==
LOC: E/R 06:50 → ICU 10:15 → PP2 09-07 17:24
PROVIDERS: ADMIT Internal Medicine; ATTEND Internal Medicine
DX: E10.10 Type 1 diabetes mellitus with ketoacidosis without coma (principal); E87.5 Hyperkalemia; E66.9 Obesity, unspecified; E78.5 Hyperlipidemia, unspecified; Z68.35 Body mass index [BMI] 35.0-35.9, adult
CPT/HCPCS: 36415; 71010; 80048; 80053; 80061; 80307; 81003; 82043; 82306; 82652; 82803; 82962; 83036; 83605; 83735; 84100; 84439; 84443; 84484; 85025; 86480; 87040; 87081; 87086; 93005; 96361; 96374; 96375; 96376; J1815; J2270; J2405; J3480; J7030; J7042; J7120

== ENCOUNTER 2016-09-22 18:10 | Emergency (ER) | payer OTHER ==
[~2016-09-22] VITALS: Ht 182.9 cm; Wt 107.5 kg
[~2016-09-22 18:10] MED LIST changes: +AZIT500T2 PO; +FENO145T19 PO; -IBUP-1542 PO; +LANT3I SC; +NOVO3I SC; +OMEG1CAP55 PO; -SODI126M NASAL; +TRAM50TA2 PO
[2016-09-22 18:13] VITALS: Ht 182.9 cm; Wt 107.5 kg
[2016-09-22] MEDS ORDERED: SOD CHLORIDE 0.9% 1,000 ML IV STA ×2 (18:56→20:06)
[2016-09-22 19:28] LABS: BASOPHIL # 0.1 10^3/ul (0.0-0.1); BASOPHILS % 1.2 % (0.0-2.0); EOSINOPHILS # 0.1 10^3/ul (0.0-0.5); HEMATOCRIT 40.9 % (42.0-52.0); HEMOGLOBIN 14.1 g/dl (14.0-18.0); LYMPHOCYTES # 1.6 10^3/ul (0.8-2.9); LYMPHOCYTES % 26.6 % (15.0-51.0); MEAN CORPUSCULAR HEMOGLOBIN 29.9 pg (29.0-33.0); MEAN CORPUSCULAR HGB CONC 34.5 g/dl (32.0-37.0); MEAN CORPUSCULAR VOLUME 86.8 fl (82.0-101.0); MEAN PLATELET VOLUME 9.6 fl (7.4-10.4); MONOCYTE # 0.4 10^3/ul (0.3-0.9); MONOCYTES % 7.1 % (0.0-11.0); NEUTROPHIL # 3.8 10^3/ul (1.6-7.5); NEUTROPHILS % 63.8 % (39.0-77.0); PLATELET COUNT 256 10^3/UL (140-415); RED BLOOD COUNT 4.71 10^6/ul (4.70-6.10); RED CELL DISTRIBUTION WIDTH 12.9 % (11.5-14.5); WHITE BLOOD COUNT 5.9 10^3/ul (4.8-10.8)
[2016-09-22 19:32] LABS: ADD UMIC NO; UR ASCORBIC ACID NEGATIVE (NEGATIVE); UR BILIRUBIN (Dip) NEGATIVE (NEGATIVE); UR BLOOD (Dip) NEGATIVE (NEGATIVE); UR CLARITY CLEAR (CLEAR); UR COLOR COLORLESS (YELLOW); UR GLUCOSE (Dip) 3+ mg/dL (NEGATIVE); UR KETONES (Dip) 1+ mg/dL (NEGATIVE); UR LEUKOCYTE ESTERASE (Dip) NEGATIVE Leu/ul (NEGATIVE); UR NITRITE (Dip) NEGATIVE (NEGATIVE); UR SPECIFIC GRAVITY (Dip) 1.025 (1.003-1.030); UR TOTAL PROTEIN (Dip) NEGATIVE (NEGATIVE); UR UROBILINOGEN (Dip) NEGATIVE (NEGATIVE)
[2016-09-22 19:49] LABS: ALANINE AMINOTRANSFERASE 24 IU/L (13-69); ALBUMIN 4.7 g/dl (3.3-4.9); ALBUMIN/GLOBULIN RATIO 1.74; ALKALINE PHOSPHATASE 148 IU/L (42-121); ANION GAP 16 (8-16); ASPARTATE AMINO TRANSFERASE 34 IU/L (15-46); BILIRUBIN,INDIRECT 1.3 mg/dl (0-1.1); BILIRUBIN,TOTAL 1.3 mg/dl (0.2-1.3); BLOOD UREA NITROGEN 23 mg/dl (7-20); CALCIUM 9.9 mg/dl (8.4-10.2); CARBON DIOXIDE 23 mmol/L (21-31); CHLORIDE 92 mmol/L (97-110); CREATININE 0.72 mg/dl (0.61-1.24); POTASSIUM 5.2 mmol/L (3.5-5.1); SODIUM 126 mmol/L (135-144); TOTAL PROTEIN 7.4 g/dl (6.1-8.1)
[2016-09-22 19:59] LABS: GLUCOSE 671 mg/dl (70-220)
[2016-09-22 20:00] LABS: TROPONIN-I < 0.012 ng/ml (0.00-0.12)
[2016-09-22] MEDS ORDERED: INSULIN REGULAR, HUMAN 100 UNIT/1 ML 3ML VIAL IV SCH (20:11)
--- NOTE | 2016-09-22 20:26 | ERD ---
ER Documentation Chief Complaint Date/Time DATE: 09/22/16 TIME: 20:23 Chief Complaint Complains of dizziness x 2 weeks HPI This is a 30-year-old male with a previous history of type 1 diabetes, hypertension who presents to the emergency room for evaluation of dizziness, weakness, and general malaise for the past 2 weeks. The patient denies any chest pain or palpitations or fevers associated with this and came to the emergency room today for evaluation. ROS All systems reviewed and are negative except as per history of present illness. Medications Home Meds Active Scripts Tramadol HCl (Tramadol HCl) 50 Mg Tablet, 50 MG PO Q8H Y for PAIN, #10 TAB Prov:VICENTE MUNIZ NP 09/08/16 Azithromycin* (Zithromax* Tri-Bhavin) 500 Mg Tablet, 500 MG PO DAILY for 3 Days, TAB Prov:VICENTE MUNIZ NP 09/08/16 Fenofibrate Nanocrystallized* (Fenofibrate*) 145 Mg Tablet, 145 MG PO DAILY for 30 Days, TAB Prov:VICENTE MUNIZ NP 09/08/16 [place]-3/Dha/Epa/Fish Oil (FISH OIL EC 1,000 MG SOFTGEL) 1 Each Capsule.dr, 2000 MG PO BID for 30 Days Prov:VICENTE MUNIZ NP 09/08/16 Insulin Aspart* (Novolog Insulin Pen*) 100 Unit/Ml Soln, 6 UNIT SC WITH MEALS for 30 Days Prov:VICENTE MUNIZ NP 09/08/16 Insulin Glargine* (Lantus*) 100 Unit/Ml Soln, 30 UNIT SC BID@08,20 for 30 Days Prov:VICENTE MUNIZ NP 09/08/16 Insulin Aspart* (Novolog Insulin Pen*) 100 Unit/Ml Soln, 0 UNIT SC WITH MEALS BEDTIME for 30 Days Prov:VICENTE MUNIZ NP 09/08/16 Allergies Allergies: Coded Allergies: ciprofloxacin (Verified Allergy, Intermediate, SOB, 09/04/16) PMhx/Soc History of Surgery: Yes (appendix) Anesthesia Reaction: No Hx Neurological Disorder: No Hx Respiratory Disorders: No Hx Cardiac Disorders: No Hx Psychiatric Problems: No Hx Miscellaneous Medical Probl: Yes (DM TYPE 1) Hx Alcohol Use: No Hx Substance Use: No Hx Tobacco Use: No Smoking Status: Never smoker Physical Exam Vitals Vital Signs Date Time Temp Pulse Resp B/P Pulse Ox O2 Delivery O2 Flow Rate FiO2 09/22/16 18:13 97.6 91 20 125/69 96 Physical Exam INITIAL VITAL SIGNS: Reviewed by me GENERAL: The patient is well developed and appropriate for usual state of health in no apparent distress HEENT: Dry mucous membranes, pupils equal, round, and reactive to light. EOMI. There is no scleral icterus. NECK: C-spine is soft and supple, there is no meningismus. There is no cervical lymphadenopathy. LUNGS: Clear to auscultation bilaterally. There are no rales, wheezes or rhonchi. HEART: Regular rate and rhythm, no murmurs, clicks, rubs or gallops. ABDOMEN: Soft, non-tender, non-distended. There are bowel sounds in all four quadrants. No rebound or guarding. EXTREMITIES: There is no peripheral cyanosis or edema. No focal swelling or erythema. NEUROLOGICAL: The patient moves all four extremities with 5/5 strength. Cranial nerves II - XII are intact. Normal gait. Alert and oriented SKIN: There is no apparent rash or petechiae. HEME/LYMPHATIC: There is no evidence of excessive bruising or lymphedema. PSYCHIATRIC: The patient does not appear anxious or depressed. Result Diagram: 09/22/16189909/22/161899 Results 24 hrs Laboratory Tests Test 09/22/16 18:50 09/22/16 19:00 Urine Color COLORLESS Urine Clarity CLEAR Urine pH 5.0 Urine Specific [place] 1.025 Urine Ketones 1+mg/dL Urine Nitrite NEGATIVEmg/dL Urine Bilirubin NEGATIVEmg/dL Urine Urobilinogen NEGATIVEmg/dL Urine Leukocyte Esterase NEGATIVELeu/ul Urine Hemoglobin NEGATIVEmg/dL Urine Glucose 3+mg/dL Urine Total Protein NEGATIVEmg/dl White Blood Count 5.910^3/ul Red Blood Count 4.7110^6/ul Hemoglobin 14.1g/dl Hematocrit 40.9% Mean Corpuscular Volume 86.8fl Mean Corpuscular Hemoglobin 29.9pg Mean Corpuscular Hemoglobin Concent 34.5g/dl Red Cell Distribution Width 12.9% Platelet Count 07229^3/UL Mean Platelet Volume 9.6fl Neutrophils % 63.8% Lymphocytes % 26.6% Monocytes % 7.1% Eosinophils % 1.0% Basophils % 1.2% Nucleated Red Blood Cells % 0.0/100WBC Neutrophils # 3.810^3/ul Lymphocytes # 1.610^3/ul Monocytes # 0.410^3/ul Eosinophils # 0.110^3/ul Basophils # 0.110^3/ul Nucleated Red Blood Cells # 0.010^3/ul Sodium Level 126mmol/L Potassium Level 5.2mmol/L Chloride Level 92mmol/L Carbon Dioxide Level 23mmol/L Anion Gap 16 Blood Urea Nitrogen 23mg/dl Creatinine 0.72mg/dl Glucose Level 671mg/dl Calcium Level 9.9mg/dl Total Bilirubin 1.3mg/dl Direct Bilirubin 0.00mg/dl Indirect Bilirubin 1.3mg/dl Aspartate Amino Transf (AST/SGOT) 34IU/L Alanine Aminotransferase (ALT/SGPT) 24IU/L Alkaline Phosphatase 148IU/L Troponin I < 0.012ng/ml Total Protein 7.4g/dl Albumin 4.7g/dl Globulin 2.70g/dl Albumin/Globulin Ratio 1.74 Lipase 46U/L Current Medications Medications (Trade) Dose Ordered Sig/Madai Route PRN Reason Start Time Stop Time Status Last Admin Dose Admin Sodium Chloride (NS) 1,000 ml @ 1,000 mls/hr Q1H STAT IV 09/22/16 18:56 09/22/16 19:55 DC 09/22/16 19:22 Insulin Human Regular 15 unit 15 unit ONCE ONCE IV 09/22/16 20:30 09/22/16 20:30 DC Sodium Chloride (NS) 1,000 ml @ 1,000 mls/hr Q1H STAT IV 09/22/16 20:06 09/22/16 21:05 Insulin Human Regular (Humulin R) 15 unit NOW IV 09/22/16 20:11 09/22/16 20:12 DC Procedures/MDM EKG: Rate/Rhythm: [Normal Sinus Rhythm] QRS, ST, T-waves: [No changes consistent w/ acute ischemia] Impression: [No evidence of ischemia or arrhythmia] This 30-year-old male presents to the emergency room for evaluation of generalized weakness, dizziness. He does have a history of type 1 diabetes. I looked at this patient's previous medical record and he was admitted to the hospital approximately 10 days ago for DKA. The patient does state that he takes 60 units of Lantus in the morning, and is on a lispro sliding scale throughout the day. The patient states that he took his Lantus this morning however did not take his a sliding scale insulin for lunch. I did obtain lab work on this patient because he had dry mucous membranes and he does have a blood sugar of 671. The patient was given 1 L fluid, and was also given 15 units of subcutaneous insulin. His blood sugar is 527 after 1 L of fluids and I have started him on a second liter at this time. This patient will be discharged when his blood sugar is less than 400. He does have ketones in the urine however he has no elevation in anion gap in no signs of decreased CO2 on his BMP, the patient is not in DKA at this time Departure Diagnosis: Primary Impression: Dizziness Additional Impression: Uncontrolled type 1 diabetes mellitus Condition: Stable CARLOS FLOWERS DO Sep 22, 2016 20:26
[2016-09-22] MEDS ORDERED: INSULIN REGULAR 10 ML INJ IV ONE (20:30)
[2016-09-22 21:37] VITALS: BP 126/82; PULSE 79; RESP 20; TEMP 97.6
== END 2016-09-22 21:39 | disposition home or self-care (01) ==
LOC: FTE 18:10
DX: R42 Dizziness and giddiness (principal); E10.9 Type 1 diabetes mellitus without complications; I10 Essential (primary) hypertension; Z79.4 Long term (current) use of insulin
CPT/HCPCS: 36415; 80053; 81003; 82962; 83690; 84484; 85025; 93005; 96374; J1815; J7030; Z7502

== ENCOUNTER 2016-10-15 22:08 | Emergency (ER) | payer OTHER ==
[~2016-10-15] VITALS: Ht 185.4 cm; Wt 108.0 kg
[2016-10-15 22:29] VITALS: Ht 185.4 cm; Wt 108.0 kg
[2016-10-16] MEDS ORDERED: CEPH-443 PO (01:07)
[2016-10-16] MEDS ORDERED: BACI28.34 TOP (01:07)
[2016-10-16] MEDS ORDERED: IBUP-1542 PO (01:07)
[2016-10-16] MEDS ORDERED: DIPHTH/TET/ACEL PERTUSS (ADULT) 0.5 ML VIAL IM* ONE (01:30)
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
== END 2016-10-16 01:32 | disposition home or self-care (01) ==
LOC: FTE 22:08
DX: T24.111A Burn of first degree of right thigh, initial encounter (principal); E10.9 Type 1 diabetes mellitus without complications; X12.XXXA Contact with other hot fluids, initial encounter; Y92.9 Unspecified place or not applicable; Z23 Encounter for immunization; Z79.4 Long term (current) use of insulin
CPT/HCPCS: 90471; 90715; Z7502

== ENCOUNTER 2016-11-05 11:52 | Emergency (ER) | payer OTHER ==
[~2016-11-05] VITALS: Ht 170.2 cm; Wt 105.0 kg
[~2016-11-05 11:52] MED LIST changes: +BACI28.34 TOP; +CEPH-443 PO; +IBUP-1542 PO
[2016-11-05 11:54] VITALS: Ht 170.2 cm; Wt 105.0 kg
[2016-11-05] MEDS ORDERED: LIDOCAINE 1% (MDV) 20 ML INJ SC ONE (12:30)
[2016-11-05] MEDS ORDERED: NEOM28OI TP (13:52)
[2016-11-05] MEDS ORDERED: DOXY100T20 PO (13:52)
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
--- NOTE | 2016-11-05 14:18 | RADRPT ---
PROCEDURE: XR Right Foot CLINICAL INDICATION: Pain, evaluate for foreign body TECHNIQUE: AP, oblique, and lateral radiographs were submitted. COMPARISON: None FINDINGS: Osseous structures: appear well mineralized and intact with no fracture or destructive process iden tified. Joint spaces: are well maintained, with no significant spurring, erosion or joint effusion evident. Soft tissues: appear unremarkable. No radiopaque foreign body is identified. IMPRESSION: Unremarkable right foot. Physician Alfredo Date Time Electronically viewed and signed by Kenn Judge Physician on 11/05/2016 14:17 /
== END 2016-11-05 13:58 | disposition home or self-care (01) ==
LOC: FTE 11:52
DX: S91.331A Puncture wound without foreign body, right foot, initial encounter (principal); E11.9 Type 2 diabetes mellitus without complications; W45.8XXA Other foreign body or object entering through skin, initial encounter; Y92.9 Unspecified place or not applicable; Z79.4 Long term (current) use of insulin
CPT/HCPCS: 73630; Z7502; Z7610

== ENCOUNTER 2016-11-22 01:37 | Emergency (ER) | payer OTHER ==
[~2016-11-22] VITALS: Ht 182.9 cm; Wt 107.0 kg
[~2016-11-22 01:37] MED LIST changes: +DOXY100T20 PO; +NEOM28OI TP
[2016-11-22 01:41] VITALS: Ht 182.9 cm; Wt 107.0 kg
[2016-11-22] MEDS ORDERED: ONDANSETRON 4 MG INJ IV STA (02:12)
[2016-11-22] MEDS ORDERED: SOD CHLORIDE 0.9% 1,000 ML IV STA (02:12)
[2016-11-22] MEDS ORDERED: lispro (02:57)
[2016-11-22] MEDS ORDERED: LANT3I SC (02:57)
--- NOTE | 2016-11-22 02:57 | ERD ---
ER Documentation Chief Complaint Date/Time DATE: 11/22/16 TIME: 02:56 Chief Complaint c/o diarrhea x 3 days. No hematochezia. No fever. HPI 31-year-old male presents here in emergency department for complaints of diarrhea vomiting abdominal pain that started 3 days ago. Patient of 4 episodes of vomiting, has 4 episodes of diarrhea. Patient does not have any blood in the stool or black stool. Patient's complete no generalized abdominal pain cramping pain 4/10 scale, accompanying the other symptoms. Patient denies any fever or chills. Patient is diabetic. ROS All systems reviewed and are negative except as per history of present illness. Medications Home Meds Active Scripts Neomycin Ag/Bacitrac Zn/Poly (Triple Antibiotic Ointment) 28 Gm Oint...g., 28 GM TP TID for 7 Days Prov:MARRY RAMIREZ MD 11/05/16 Doxycycline Hyclate* (Doxycycline Hyclate*) 100 Mg Tablet., 100 MG PO BID for 7 Days, TAB Prov:MARRY RAMIREZ MD 11/05/16 Ibuprofen* (Motrin*) 600 Mg Tab, 600 MG PO Q6, #30 TAB Prov:GREYSON BALBUENA PA-C 10/16/16 Cephalexin* (Keflex*) 500 Mg Capsule, 500 MG PO QID for 7 Days, CAP Prov:GREYSON BALBUENA PA-C 10/16/16 Bacitracin* (Bacitracin Zinc Oint*) 28.35 Gm Oint, 1 APPLIC TOP BID, #1 TUB APPLI TO Prov:GREYSON BALBUENA PA-C 10/16/16 Tramadol HCl (Tramadol HCl) 50 Mg Tablet, 50 MG PO Q8H Y for PAIN, #10 TAB Prov:VICENTE MUNIZ NP 09/08/16 Azithromycin* (Zithromax* Tri-Bhavin) 500 Mg Tablet, 500 MG PO DAILY for 3 Days, TAB Prov:VICENTE MUNIZ NP 09/08/16 Fenofibrate Nanocrystallized* (Fenofibrate*) 145 Mg Tablet, 145 MG PO DAILY for 30 Days, TAB Prov:VICENTE MUNIZ NP 09/08/16 [place]-3/Dha/Epa/Fish Oil (FISH OIL EC 1,000 MG SOFTGEL) 1 Each Capsule.dr, 2000 MG PO BID for 30 Days Prov:IVCENTE MUNIZ [employer] 09/08/16 Insulin Aspart* (Novolog Insulin Pen*) 100 Unit/Ml Soln, 6 UNIT SC WITH MEALS for 30 Days Prov:VICENTE MUNIZ [employer] 09/08/16 Insulin Glargine* (Lantus*) 100 Unit/Ml Soln, 30 UNIT SC BID@08,20 for 30 Days Prov:VICENTE MUNIZ [employer] 09/08/16 Insulin Aspart* (Novolog Insulin Pen*) 100 Unit/Ml Soln, 0 UNIT SC WITH MEALS BEDTIME for 30 Days Prov:VICENTE MUNIZ [employer] 09/08/16 Reported Medications [lispro] Unknown Strength No Conflict Check 11/22/16 Insulin Glargine* (Lantus*) Unknown Strength Soln, SC DAILY, #1 VIAL 11/22/16 Allergies Allergies: Coded Allergies: ciprofloxacin (Verified Allergy, Intermediate, SOB, 09/04/16) PMhx/Soc History of Surgery: Yes (appendectomy) Anesthesia Reaction: No Hx Neurological Disorder: No Hx Respiratory Disorders: No Hx Cardiac Disorders: No Hx Psychiatric Problems: No Hx Miscellaneous Medical Probl: Yes (DM TYPE 1) Hx Alcohol Use: No Hx Substance Use: No Hx Tobacco Use: No Smoking Status: Never smoker FmHx Family History: No coronary disease, No diabetes, No other Physical Exam Vitals Vital Signs Date Time Temp Pulse Resp B/P Pulse Ox O2 Delivery O2 Flow Rate FiO2 11/22/16 01:41 98.1 70 18 111/67 96 Physical Exam GENERAL: The patient is well developed and appropriate for usual state of health, in no apparent distress. CHEST: Clear to auscultation bilaterally. There are no rales, wheezes or rhonchi. HEART: Regular rate and rhythm. No murmurs, clicks, rubs or gallops. No S3 or S4. ABDOMEN: Soft, nontender and nondistended. hyperactive bowel sounds. No rebound or guarding. No gross peritonitis. No gross organomegaly or masses. No Marte sign or McBurney point tenderness. BACK: No midline or flank tenderness. EXTREMITIES: Equal pulses bilaterally. There is no peripheral clubbing, cyanosis or edema. No focal swelling or erythema. Full range of motion. Grossly neurovascularly intact. NEURO: Alert and oriented. Cranial nerves 2-12 intact. Motor strength in all 4 extremities with 5/5 strength. Sensation grossly intact. Normal speech and gait. SKIN: There is no apparent rash or petechia. The skin is warm and dry. HEMATOLOGIC AND LYMPHATIC: There is no evidence of excessive bruising or lymphedema. No gross cervical, axillary, or inguinal lymphadenopathy. Result Diagram: 11/22/16 0253 11/22/16 0253 Results 24 hrs Laboratory Tests Test 11/22/16 02:53 11/22/16 04:05 White Blood Count 8.010^3/ul Red Blood Count 4.4310^6/ul Hemoglobin 13.6g/dl Hematocrit 39.2% Mean Corpuscular Volume 88.5fl Mean Corpuscular Hemoglobin 30.7pg Mean Corpuscular Hemoglobin Concent 34.7g/dl Red Cell Distribution Width 12.4% Platelet Count 44819^3/UL Mean Platelet Volume 9.3fl Neutrophils % 70.5% Lymphocytes % 18.6% Monocytes % 8.4% Eosinophils % 1.3% Basophils % 0.8% Nucleated Red Blood Cells % 0.0/100WBC Neutrophils # (Manual) 5.610^3/ul Lymphocytes # 1.510^3/ul Monocytes # 0.710^3/ul Eosinophils # 0.110^3/ul Basophils # 0.110^3/ul Nucleated Red Blood Cells # 0.010^3/ul Sodium Level 142mmol/L Potassium Level 3.6mmol/L Chloride Level 104mmol/L Carbon Dioxide Level 23mmol/L Anion Gap 19 Blood Urea Nitrogen 28mg/dl Creatinine 0.71mg/dl Glucose Level 240mg/dl Calcium Level 9.6mg/dl Total Bilirubin 0.2mg/dl Direct Bilirubin 0.00mg/dl Indirect Bilirubin 0.2mg/dl Aspartate Amino Transf (AST/SGOT) 23IU/L Alanine Aminotransferase (ALT/SGPT) 36IU/L Alkaline Phosphatase 122IU/L Total Protein 6.7g/dl Albumin 3.9g/dl Globulin 2.80g/dl Albumin/Globulin Ratio 1.39 Lipase 41U/L Bedside Urine pH (LAB) 5.5 Bedside Urine Protein (LAB) Trace Bedside Urine Glucose (UA) 0.50% Bedside Urine Ketones (LAB) Negative Bedside Urine Blood Negative Bedside Urine Nitrite (LAB) Negative Bedside Urine Leukocyte Esterase (L Negative Current Medications Medications (Trade) Dose Ordered Sig/Madai Route PRN Reason Start Time Stop Time Status Last Admin Dose Admin Sodium Chloride (NS) 1,000 ml @ 1,000 mls/hr Q1H STAT IV 11/22/16 02:12 11/22/16 03:11 DC 11/22/16 02:50 Ondansetron HCl (Zofran Inj) 4 mg ONCE STAT IV 11/22/16 02:12 11/22/16 02:13 DC 11/22/16 02:49 Patient was given Zofran here in the emergency department. After treatment, patient was able to tolerate po fluids here in the emergency department without any vomiting. There is no signs and symptoms of dehydration. Normal saline IV bolus was given here in emergency department for rehydration, patient tolerated IV fluids. PROCEDURE: CT ABDOMEN/PELVIS WITHOUT CONTRAST CLINICAL INDICATION: 31-year-old male with abdominal pain. TECHNIQUE: The study was performed utilizing a [employer] VCT 64-slice CT scanner. Direct axial sections were obtained through the abdomen and pelvis without the use of intravenous contrast material. Sagittal and coronal reformations were obtained. One or more of the following dose reduction techniques were utilized: automated exposure control, adjustment of the mA and/ or kV according to patient's size or use of iterative reconstruction technique. The images were reviewed on a PACS workstation. CTD/vol = 20.6 mGy; Total Exam DLP = 1422.2 mGy-cm. COMPARISON: None. FINDINGS: There is a small calcified right infrahilar lymph node. There is a calcified granuloma within the inferior aspect of the right middle lobe on axial image 3- 27 measuring approximately 5 x 5 mm. There is no evidence for significant pleural effusion. The liver has a normal size and contour without focal areas of abnormal density. No intrahepatic nor extrahepatic biliary ductal dilatation is seen. The gallbladder demonstrates no wall thickening nor pericholecystic fluid. No biliary stones are evident. The pancreas is without areas of abnormal attenuation. The spleen is identified and has a normal size without abnormal density. The adrenal glands are unremarkable. The kidneys are without abnormal density. No hydroureteronephrosis nor nephroureterolithiasis is evident. The urinary bladder contains urine. There is an thickening and soft tissues subcutaneous infiltration within the left mid abdominal wall seen best on axial image 2-119. There is no evidence for bowel obstruction. The appendix is not visualized however there is no periappendiceal inflammatory changes. The prostate is not enlarged. There is no significant free fluid. The aortoiliac vessels are without aneurysmal dilatation. The osseous structures are intact. IMPRESSION: 1. No CT evidence for obstructive uropathy or renal calculi. 2. The appendix is not visualized on this noncontrast examination however there are no periappendiceal inflammatory changes. Clinical correlation is necessary. 3. Left mid ventral abdominal wall skin thickening and subcutaneous infiltration which may be due to injection sites. Clinical correlation is necessary. 4. Small right infrahilar calcified lymph node and right middle lobe granuloma consistent with prior granulomatous disease. .Marshall Jones MD, MD Date Time Electronically viewed and signed by .Marshall Jones MD, MD on 11/22/2016 03:47 .M/ CC: DIALLO OVALLE [employer] Procedures/MDM Medical Decision Making:she is symptoms most likely is consistent with viral gastroenteritis. No symptoms of dehydration, no electrolyte imbalance, no diabetic ketoacidosis noted. There is low suspicion for abdominal emergencies at this time. Patients abdominal exam is normal at this time. Patients radiology exam does not show any abdominal emergencies at this time. There is low suspicion for appendicitis, cholecystitis, abdominal aortic aneurysms or peritonitis at this time. There is low suspicion for sepsis. Patient appears well and is hemodynamically stable. Disposition: Home. Condition: Stable Prescription bentyl, Zofran, ibuprofen Instructions: Patient is advised to take medications as prescribed. Patient is advised to rest, increase fluid intake and do brat diet for next 1-2 days and progress as tolerated. Patient is advised that if symptoms are worse, severe abdominal pain, uncontrolled vomiting, high fever, severe flank pain, worst signs and symptoms, to return to the emergency department immediately. Otherwise, patient can follow up with primary care doctor in 5-7 days. Departure Diagnosis: Primary Impression: Viral gastroenteritis Condition: Stable Patient Instructions: Gastroenteritis, Viral (6Y-Adult) Additional Instructions: Patient is advised to take medications as prescribed. Patient is advised to rest , increase fluid intake and do brat diet for next 1-2 days and progress as tolerated. Patient is advised that if symptoms are worse, severe abdominal pain , uncontrolled vomiting, high fever, severe flank pain, worst signs and symptoms , to return to the emergency department immediately. Otherwise, patient can follow up with primary care doctor in 5-7 days. DIALLO OVALLE NP Nov 22, 2016 02:57
[2016-11-22 03:18] LABS: BASOPHIL # 0.1 10^3/ul (0.0-0.1); BASOPHILS % 0.8 % (0.0-2.0); EOSINOPHILS # 0.1 10^3/ul (0.0-0.5); EOSINOPHILS % 1.3 % (0.0-7.0); HEMATOCRIT 39.2 % (42.0-52.0); HEMOGLOBIN 13.6 g/dl (14.0-18.0); LYMPHOCYTES # 1.5 10^3/ul (0.8-2.9); LYMPHOCYTES % 18.6 % (15.0-51.0); MEAN CORPUSCULAR HEMOGLOBIN 30.7 pg (29.0-33.0); MEAN CORPUSCULAR HGB CONC 34.7 g/dl (32.0-37.0); MEAN CORPUSCULAR VOLUME 88.5 fl (82.0-101.0); MEAN PLATELET VOLUME 9.3 fl (7.4-10.4); MONOCYTE # 0.7 10^3/ul (0.3-0.9); MONOCYTES % 8.4 % (0.0-11.0); NEUTROPHILS % 70.5 % (39.0-77.0); PLATELET COUNT 226 10^3/UL (140-415); RED BLOOD COUNT 4.43 10^6/ul (4.70-6.10); RED CELL DISTRIBUTION WIDTH 12.4 % (11.5-14.5)
[2016-11-22 03:43] LABS: ALBUMIN 3.9 g/dl (3.3-4.9); ALBUMIN/GLOBULIN RATIO 1.39; BILIRUBIN,INDIRECT 0.2 mg/dl (0-1.1); BILIRUBIN,TOTAL 0.2 mg/dl (0.2-1.3); CALCIUM 9.6 mg/dl (8.4-10.2); CREATININE 0.71 mg/dl (0.61-1.24); POTASSIUM 3.6 mmol/L (3.5-5.1); TOTAL PROTEIN 6.7 g/dl (6.1-8.1)
--- NOTE | 2016-11-22 03:48 | RADRPT ---
PROCEDURE: CT ABDOMEN/PELVIS WITHOUT CONTRAST CLINICAL INDICATION: 31-year-old male with abdominal pain. TECHNIQUE: The study was performed utilizing a [employer] VCT 64-slice CT scanner. Direct axia l sections were obtained through the abdomen and pelvis without the use of intravenous contrast mate rial. Sagittal and coronal reformations were obtained. One or more of the following dose reduction t echniques were utilized: automated exposure control, adjustment of the mA and/or kV according to pat ient's size or use of iterative reconstruction technique. The images were reviewed on a PACS workst at[employer]. CTD/vol = 20.6 mGy; Total Exam DLP = 1422.2 mGy-cm. COMPARISON: None. FINDINGS: There is a small calcified right infrahilar lymph node. There is a calcified granuloma within the i nferior aspect of the right middle lobe on axial image 3-27 measuring approximately 5 x 5 mm. There is no evidence for significant pleural effusion. The liver has a normal size and contour without f ocal areas of abnormal density. No intrahepatic nor extrahepatic biliary ductal dilatation is seen. The gallbladder demonstrates no wall thickening nor pericholecystic fluid. No biliary stones are robert dent. The pancreas is without areas of abnormal attenuation. The spleen is identified and has a nor mal size without abnormal density. The adrenal glands are unremarkable. The kidneys are without abno rmal density. No hydroureteronephrosis nor nephroureterolithiasis is evident. The urinary bladder co ntains urine. There is an thickening and soft tissues subcutaneous infiltration within the left mid abdominal wall seen best on axial image 2-119. There is no evidence for bowel obstruction. The appendix is not visualized however there is no periappendiceal inflammatory changes. The prostate i s not enlarged. There is no significant free fluid. The aortoiliac vessels are without aneurysmal d ilatation. The osseous structures are intact. IMPRESSION: 1. No CT evidence for obstructive uropathy or renal calculi. 2. The appendix is not visualized on this noncontrast examination however there are no periappendic eal inflammatory changes. Clinical correlation is necessary. 3. Left mid ventral abdominal wall skin thickening and subcutaneous infiltration which may be due t o injection sites. Clinical correlation is necessary. 4. Small right infrahilar calcified lymph node and right middle lobe granuloma consistent with prio r granulomatous disease. .Marshall Jones MD, MD Date Time Electronically viewed and signed by .Marshall Jones MD, MD on 11/22/2016 03:47 .Timothy/
[2016-11-22 03:59] LABS: URINE BLOOD (Dip) POC Negative (NEGATIVE)
[2016-11-22] MEDS ORDERED: ONDA4TAB14 PO (04:14)
[2016-11-22] MEDS ORDERED: IBUP400T22 PO (04:14)
[2016-11-22] MEDS ORDERED: DICY10CA60 PO (04:14)
[2016-11-22 04:30] VITALS: BP 124/72; PULSE 73; RESP 18; TEMP 97.8
== END 2016-11-22 04:32 | disposition home or self-care (01) ==
LOC: FTE 01:37
DX: A08.4 Viral intestinal infection, unspecified (principal); E10.9 Type 1 diabetes mellitus without complications; Z79.4 Long term (current) use of insulin
CPT/HCPCS: 36415; 74176; 80053; 81003; 83690; 85025; 96374; J2405; J7030; Z7502

== ENCOUNTER 2016-12-16 18:57 | Emergency (ER) | payer OTHER ==
[~2016-12-16] VITALS: Ht 182.9 cm; Wt 105.5 kg
[~2016-12-16 18:57] MED LIST changes: +DICY10CA60 PO; +IBUP400T22 PO; +ONDA4TAB14 PO; +lispro
[2016-12-16 19:41] VITALS: Ht 182.9 cm; Wt 105.5 kg
--- NOTE | 2016-12-16 22:28 | RADRPT ---
PROCEDURE: XR Chest. CLINICAL INDICATION: Cough. TECHNIQUE: Single frontal view. COMPARISON: 09/06/2016. FINDINGS: The lungs are clear. The heart size is normal. There is no pleural effusion. There is no pneumothorax. IMPRESSION: 1. Normal chest radiograph. 2. No change from 09/06/2016. RPTAT: QQ .Pedro Graf MD, MD Date Time Electronically viewed and signed by .Pedro Graf MD, MD on 12/16/2016 22:28 .R/
[2016-12-16] MEDS ORDERED: D-ME473S2 PO (22:56)
[2016-12-16] MEDS ORDERED: IBUP400T22 PO (22:57)
--- NOTE | 2016-12-16 23:11 | ERD ---
ER Documentation Chief Complaint Date/Time DATE: 12/16/16 TIME: 23:03 Chief Complaint cough/runny nose/headache/chest pain x 5 days HPI This is a 31-year-old male presents to the ER with a cough, runny nose, headache for the last 5 days. Patient states that cough is productive with green sputum. He denies any hemoptysis. Patient is also complaining of chest pain which is worse whenever he coughs and shortness of breath. He does not have a past medical history of asthma. He denies any recent travel he denies any smoking, leg pain, redness or swelling. ROS 12 point review of systems was done, all negative except per HPI. Medications Home Meds Active Scripts Ibuprofen* (Motrin*) 400 Mg Tab, 400 MG PO Q6, #30 TAB Prov:PAMELA PEREZ 12/16/16 Dextromethorphan Hb-Promethazine Hcl* (Promethazine DM* Syrup) 473 Ml Syrup, 10 ML PO Q6 Y for COUGH for 3 Days, ML Prov:PAMELA PEREZ 12/16/16 Ondansetron (Ondansetron Odt) 4 Mg Tab.rapdis, 4 MG PO Q8 Y for NAUSEA AND/OR VOMITING, #30 TAB Prov:DIALLO OVALLE NP 11/22/16 Ibuprofen* (Motrin*) 400 Mg Tab, 400 MG PO Q6H Y for PAIN AND OR ELEVATED TEMP, #30 TAB Prov:DIALLO OVALLE NP 11/22/16 Dicyclomine Hcl* (Bentyl*) 10 Mg Capsule, 20 MG PO QID, #20 CAP Prov:DIALLO OVALLE NP 11/22/16 Neomycin Ag/Bacitrac Zn/Poly (Triple Antibiotic Ointment) 28 Gm Oint...g., 28 GM TP TID for 7 Days Prov:MARRY RAMIREZ MD 11/05/16 Doxycycline Hyclate* (Doxycycline Hyclate*) 100 Mg Tablet.dr, 100 MG PO BID for 7 Days, TAB Prov:MARRY RAMIREZ MD 11/05/16 Ibuprofen* (Motrin*) 600 Mg Tab, 600 MG PO Q6, #30 TAB Prov:GREYSON BALBUENA PA-C 10/16/16 Cephalexin* (Keflex*) 500 Mg Capsule, 500 MG PO QID for 7 Days, CAP Prov:GREYSON BALBUENA PA-C 10/16/16 Bacitracin* (Bacitracin Zinc Oint*) 28.35 Gm Oint, 1 APPLIC TOP BID, #1 TUB APPLI TO Prov:GREYSON BALBUENA PA-C 10/16/16 Tramadol HCl (Tramadol HCl) 50 Mg Tablet, 50 MG PO Q8H Y for PAIN, #10 TAB Prov:VICENTE MUNIZ NP 09/08/16 Azithromycin* (Zithromax* Tri-Bhavin) 500 Mg Tablet, 500 MG PO DAILY for 3 Days, TAB Prov:VICENTE MUNIZ NP 09/08/16 Fenofibrate Nanocrystallized* (Fenofibrate*) 145 Mg Tablet, 145 MG PO DAILY for 30 Days, TAB Prov:VICENTE MUNIZ NP 09/08/16 [place]-3/Dha/Epa/Fish Oil (FISH OIL EC 1,000 MG SOFTGEL) 1 Each Capsule.dr, 2000 MG PO BID for 30 Days Prov:VICENTE MUNIZ NP 09/08/16 Insulin Aspart* (Novolog Insulin Pen*) 100 Unit/Ml Soln, 6 UNIT SC WITH MEALS for 30 Days Prov:VICENTE MUNIZ NP 09/08/16 Insulin Glargine* (Lantus*) 100 Unit/Ml Soln, 30 UNIT SC BID@08,20 for 30 Days Prov:VICENTE MUNIZ NP 09/08/16 Insulin Aspart* (Novolog Insulin Pen*) 100 Unit/Ml Soln, 0 UNIT SC WITH MEALS BEDTIME for 30 Days Prov:VICENTE MUNIZ NP 09/08/16 Reported Medications [lispro] Unknown Strength No Conflict Check 11/22/16 Insulin Glargine* (Lantus*) Unknown Strength Soln, SC DAILY, #1 VIAL 11/22/16 Allergies Allergies: Coded Allergies: ciprofloxacin (Verified Allergy, Intermediate, SOB, 09/04/16) PMhx/Soc History of Surgery: Yes (appendectomy) Anesthesia Reaction: No Hx Neurological Disorder: No Hx Respiratory Disorders: No Hx Cardiac Disorders: No Hx Psychiatric Problems: No Hx Miscellaneous Medical Probl: Yes (DM TYPE 1) Hx Alcohol Use: No Hx Substance Use: No Hx Tobacco Use: No Smoking Status: Never smoker Physical Exam Vitals Vital Signs Date Time Temp Pulse Resp B/P Pulse Ox O2 Delivery O2 Flow Rate FiO2 12/16/16 19:41 97.7 84 20 116/72 98 Physical Exam GENERAL: The patient is well-developed, well-nourished, in no acute distress. NECK: Cervical spine is non tender with no step off. Supple, no nuchal rigidity HEENT: Atraumatic. Pupils equal, round and reactive to light. Extraocular muscles are grossly intact. Conjunctivae pink, no discharge. Bilateral tympanic membranes are clear with no evidence of erythema, effusion or dulling of the light reflex. Tonsilar erythema with no exudates or uvular deviation. Clear rhinorrhea. RESPIRATORY: Clear to auscultation bilaterally. There are no rales, wheezes or rhonchi. HEART: Regular rate and rhythm. No murmurs, clicks, rubs or gallops. EXTREMITIES: No clubbing or cyanosis. Full range of motion. Grossly neurovascularly intact. NEUROLOGIC: Alert and oriented. Cranial nerves II through XII are intact. SKIN: There is no rash. The skin is warm and dry. Results 24 hrs [place] [id number] Radiology Main Line: [phone] DIAGNOSTIC IMAGING REPORT Patient: BAUTISTA QEUEN : 1985 Age: 31 Sex: M MR #: [id number] DOS: 12/16/16 0000 Ordering MD: PAMELA PEREZ PA-C Location: [facility] Room/Bed: PROCEDURE: XR Chest. CLINICAL INDICATION: Cough. TECHNIQUE: Single frontal view. COMPARISON: 09/06/2016. FINDINGS: The lungs are clear. The heart size is normal. There is no pleural effusion. There is no pneumothorax. IMPRESSION: 1. Normal chest radiograph. 2. No change from 09/06/2016. RPTAT: QQ .Marry Graf MD, Date Time Electronically viewed and signed by .Marry Graf MD, MD on 12/16/2016 22:28 .R/ CC: PAMELA PEREZ Procedures/MDM Differential diagnosis includes but is not limited to; STEMI, dissection, pneumothorax, PE, esophageal rupture, tamponade, pneumonia, pericarditis, GERD, musculoskeletal, endocarditis, anxiety, URI, pneumonia. This is a 31-year-old male presents to the ER with cough, runny nose, chest pain shortness of breath. Patient likely has viral bronchitis at this time I do not believe patient needs any antibiotics as his x-ray is normal. Patient is not hypoxic or in any respiratory distress. EKG was done at [address] elevation no T-wave inversion, this x-ray was read and signed by Dr. Major. Suspicion for acute cardiac etiology as well. Suspicion for pulmonary embolism is low as patient does not have any PERC criteria. Patient will be sent home with promethazine with ibuprofen. He needs to follow-up with his primary care doctor within 1-2 days return to ER sooner if symptoms worsen. My medical decision making shared with the patient he understands and agrees with plan. Departure Diagnosis: Primary Impression: Bronchitis Condition: Stable Patient Instructions: Bronchitis, No Antibiotic (Adult) Additional Instructions: Call your primary care doctor TOMORROW for an appointment during the next 1-2 days.See the doctor sooner or return here if your condition worsens before your appointment time. PAMELA PEREZ Dec 16, 2016 23:10
== END 2016-12-16 23:12 | disposition home or self-care (01) ==
LOC: FTE 18:57
DX: J40 Bronchitis, not specified as acute or chronic (principal); E10.9 Type 1 diabetes mellitus without complications; R07.9 Chest pain, unspecified; Z79.4 Long term (current) use of insulin
CPT/HCPCS: 71010; Z7502; 93005

== ENCOUNTER 2016-12-24 13:12 | Emergency (ER) | payer OTHER ==
[~2016-12-24] VITALS: Ht 182.9 cm; Wt 109.0 kg
[~2016-12-24 13:12] MED LIST changes: +D-ME473S2 PO
[2016-12-24 13:18] VITALS: Ht 182.9 cm; Wt 109.0 kg
[2016-12-24] MEDS ORDERED: SULF1TAB31 PO (13:52)
--- NOTE | 2016-12-24 14:03 | ERD ---
ER Documentation Chief Complaint Date/Time DATE: 12/24/16 TIME: 13:55 Chief Complaint nose pain from "mask I use to sleep" HPI 31-year-old male complaining of pain in the tip of his nose 3 days. Patient states that he started using a CPAP machine about 1 month ago. The last 3 nights, when he turned to his right side, he noticed the pain on his nose from pressure of the mask. Feels like "something inside my nose was shifting". Patient states that mask has good fit. Fever or chills. Denies trauma to the nose. ROS All systems reviewed and are negative except as per history of present illness. Medications Home Meds Active Scripts Sulfamethoxazole/Trimethoprim* (Bactrim Ds* Tablet) 1 Each Tablet, 1 TAB PO BID , #14 TAB Prov:ALLISON MARTEL NP 12/24/16 Ibuprofen* (Motrin*) 400 Mg Tab, 400 MG PO Q6, #30 TAB Prov:PAMELA PEREZ 12/16/16 Dextromethorphan Hb-Promethazine Hcl* (Promethazine DM* Syrup) 473 Ml Syrup, 10 ML PO Q6 Y for COUGH for 3 Days, ML Prov:PAMELA PEREZ 12/16/16 Ondansetron (Ondansetron Odt) 4 Mg Tab.rapdis, 4 MG PO Q8 Y for NAUSEA AND/OR VOMITING, #30 TAB Prov:DIALLO OVALLE NP 11/22/16 Ibuprofen* (Motrin*) 400 Mg Tab, 400 MG PO Q6H Y for PAIN AND OR ELEVATED TEMP, #30 TAB Prov:DIALLO OVALLE NP 11/22/16 Dicyclomine Hcl* (Bentyl*) 10 Mg Capsule, 20 MG PO QID, #20 CAP Prov:DIALLO OVALLE NP 11/22/16 Neomycin Ag/Bacitrac Zn/Poly (Triple Antibiotic Ointment) 28 Gm Oint...g., 28 GM TP TID for 7 Days Prov:MARRY RAMIREZ MD 11/05/16 Doxycycline Hyclate* (Doxycycline Hyclate*) 100 Mg Tablet.dr, 100 MG PO BID for 7 Days, TAB Prov:MARRY RAMIREZ MD 11/05/16 Ibuprofen* (Motrin*) 600 Mg Tab, 600 MG PO Q6, #30 TAB Prov:GREYSON BALBUENA PA-C 10/16/16 Cephalexin* (Keflex*) 500 Mg Capsule, 500 MG PO QID for 7 Days, CAP Prov:GREYSON BALBUENA PA-C 10/16/16 Bacitracin* (Bacitracin Zinc Oint*) 28.35 Gm Oint, 1 APPLIC TOP BID, #1 TUB APPLI TO Prov:GREYSON BALBUENA PA-C 10/16/16 Tramadol HCl (Tramadol HCl) 50 Mg Tablet, 50 MG PO Q8H Y for PAIN, #10 TAB Prov:VICENTE MUNIZ NP 09/08/16 Azithromycin* (Zithromax* Tri-Bhavin) 500 Mg Tablet, 500 MG PO DAILY for 3 Days, TAB Prov:VICENTE MUNIZ NP 09/08/16 Fenofibrate Nanocrystallized* (Fenofibrate*) 145 Mg Tablet, 145 MG PO DAILY for 30 Days, TAB Prov:VICENTE MUNIZ NP 09/08/16 [place]-3/Dha/Epa/Fish Oil (FISH OIL EC 1,000 MG SOFTGEL) 1 Each Capsule.dr, 2000 MG PO BID for 30 Days Prov:VICENTE MUNIZ NP 09/08/16 Insulin Aspart* (Novolog Insulin Pen*) 100 Unit/Ml Soln, 6 UNIT SC WITH MEALS for 30 Days Prov:VICENTE MUNIZ NP 09/08/16 Insulin Glargine* (Lantus*) 100 Unit/Ml Soln, 30 UNIT SC BID@08,20 for 30 Days Prov:VICENTE MUNIZ NP 09/08/16 Insulin Aspart* (Novolog Insulin Pen*) 100 Unit/Ml Soln, 0 UNIT SC WITH MEALS BEDTIME for 30 Days Prov:VICENTE MUNIZ NP 09/08/16 Reported Medications [lispro] Unknown Strength No Conflict Check 11/22/16 Insulin Glargine* (Lantus*) Unknown Strength Soln, SC DAILY, #1 VIAL 11/22/16 Allergies Allergies: Coded Allergies: ciprofloxacin (Verified Allergy, Intermediate, SOB, 09/04/16) PMhx/Soc History of Surgery: Yes (appendectomy) Anesthesia Reaction: No Hx Neurological Disorder: No Hx Respiratory Disorders: No Hx Cardiac Disorders: No Hx Psychiatric Problems: No Hx Miscellaneous Medical Probl: Yes (DM TYPE 1) Hx Alcohol Use: No Hx Substance Use: No Hx Tobacco Use: No Smoking Status: Never smoker Physical Exam Vitals Vital Signs Date Time Temp Pulse Resp B/P Pulse Ox O2 Delivery O2 Flow Rate FiO2 12/24/16 13:18 98.4 85 18 126/76 98 Physical Exam General: Well-developed, well-nourished, conscious and coherent, in no distress Skin: Warm and dry without rash, good texture and turgor Head: Normocephalic without evidence of trauma Eyes: Sclera and conjunctivae normal; pupils equal, round, and reactive to light; extraocular movements are intact Ears: Canals are patent. Tympanic membranes are clear Nose/Face: Without rhinorrhea. Left distal aspect of the external nose erythematous, slightly indurated, and tender to palpation. Mouth/throat: Mucous membranes are moist. Posterior pharynx clear without erythema or exudates Neck: Supple without meningismus or adenopathy. Carotids are equal. Trachea midline. No bruits or JVD Chest: Normal AP diameter. Good expansion without retractions. Nontender. Lungs are clear to auscultate bilaterally with good tidal volume Heart: Regular rate and rhythm. No murmur, rub, or gallops heard Extremities: Full range of motion. Good strength bilaterally. No clubbing, cyanosis, or edema. Peripheral pulses are intact. Sensation intact Neuro: Alert and oriented 4, GCS 15. Cranial nerves grossly intact. Motor and sensory exams nonfocal. Moves all extremities. Speech clear. Gait normal Procedures/MDM 31-year-old male in ED with pain in his external nose 3 days. The exam findings consistent with her facial cellulitis of the external nose. No sign of abscess, no sign of deep structure involvement. Patient has history of type 1 diabetes. Patient appears well, stable for discharge and outpatient management. Medical decision making shared with patient and family. Education provided to patient and family. Patient and family expressed understanding of the plan. Medications on discharge: Bactrim DS. Follow-up: Primary care provider in 2-3 days or return to ED if worse. Disclaimer: Inadvertent spelling and grammatical errors are likely due to EHR/ dictation software use and do not reflect on the overall quality of patient care. Also, please note that the electronic time recorded on this note does not necessarily reflect the actual time of the patient encounter. Departure Diagnosis: Primary Impression: Cellulitis of nose, external Condition: Stable Patient Instructions: Cellulitis, Facial [facility]errals[facility] Usted se amezcua hecho un examen mdico de control que le indica que no est en kelsey condicin que requiera tratamiento urgente en el Departamento de Emergencia. Un estudio ms profundo y el tratamiento de ag condicin pueden esperar sin ningn riesgo hasta que usted sea atendida/o en el consultorio de ag mdico o kelsey cl ashly. Es responsabilidad suya arreglar kelsey brian para el seguimiento del margot. MANEJO DE CONDICIONES NO URGENTES EN EL FUTURO 1) Si usted tiene un mdico de atencin primaria: Usted debera llamar a ag mdico de atencin primaria antes de venir al departamento de emergencia. Despus de las horas de consultorio, ag doctor o ag asociado/a est disponible por telfono. El mdico o enfermero de farzad en el servicio telefnico puede asesorarle por jake medio para atender el problema, o margot contrario se puede programar kelsey brian. 2) Si usted no tiene un mdico de atencin primaria: Llame al mdico o clnica de referencia que aparece abajo rosa las horas de consultorio para hacer kelsey brian para que le vean. CLINICAS: [facility] [phone] [facility] [phone] [facility] [phone] [facility] [place] [id number] [phone] [facility] [place] [phone] [facility]. [phone] [facility] PAULINA NOVA Additional Instructions: Llame al doctor MAANA y arlin kelsey BRIAN PARA DENTRO DE 2-3 VILLATORO.Dgale a la secretaria que nosotros le instruimos hacer esta brian.Avise o llame si ag condicin se empeora antes de la brian. Regresa aqui si peor o no mejor. ALLISON MARTEL. TOREY Dec 24, 2016 14:03
== END 2016-12-24 14:15 | disposition home or self-care (01) ==
LOC: FTE 13:12
DX: J34.0 Abscess, furuncle and carbuncle of nose (principal); E10.9 Type 1 diabetes mellitus without complications; Z79.4 Long term (current) use of insulin
CPT/HCPCS: 99283

== ENCOUNTER 2017-08-21 18:40 | Emergency (ER) | END 2017-08-21 23:05 | disposition home or self-care (01) ==

== ENCOUNTER 2017-09-16 22:16 | Emergency (ER) | END 2017-09-17 04:30 | disposition home or self-care (01) ==

== ENCOUNTER 2017-09-17 23:56 | Inpatient (IN) | END 2017-09-20 15:20 | disposition home or self-care (01) | DRG 639 ==